=== PATIENT | female | born 1980 | race Caucasian/White ===

== ENCOUNTER 2016-10-23 06:43 | Day surgery (SDC) | payer OTHER ==
[2016-10-22 11:03] VITALS: BMI 22.7
[~2016-10-23] VITALS: Ht 157.5 cm; Wt 60.0 kg
[2016-10-23] VITALS (12 sets, daily range): BP systolic 96–148; BP diastolic 52–80; PULSE 56–87; RESP 15–35; Ht 157.5 cm; Wt 60.0 kg
[2016-10-23] MEDS ORDERED: THROMBIN 5000 UNIT VIAL ONE (08:40)
[2016-10-23] MEDS ORDERED: BUPIVACAINE 0.25% (MPF) 30 ML INJ ONE (08:40)
[2016-10-23] MEDS ORDERED: LIDOCAINE 1% (STERILE-PAK) 30 ML INJ ONE (08:40)
[2016-10-23] MEDS ORDERED: GELATIN SIZE 100 SPONGE ONE (08:40)
[2016-10-23] MEDS ORDERED: POLYMYXIN/BACITRACIN 1L IRRIG ONE (08:40)
[2016-10-23] MEDS ORDERED: HEPARIN 1000 UNITS/ML 10 ML INJ ONE ×2 (08:52→10:06)
[2016-10-23] MEDS ORDERED: MIDAZOLAM 1 MG/ML 2 ML INJ ONE (08:56)
[2016-10-23] MEDS ORDERED: CEFAZOLIN 1 GM INJ ONE (08:56)
[2016-10-23] MEDS ORDERED: PROPOFOL 40 ML ONE (08:56)
[2016-10-23] MEDS ORDERED: FENTAnyl 50 MCG/ML VIAL ONE (08:56)
[2016-10-23] MEDS ORDERED: ROPIVACAINE 0.5 % 30 ML VIAL ONE (08:57)
[2016-10-23] MEDS ORDERED: ASPI81TA3 PO (08:57)
[2016-10-23] MEDS ORDERED: KRIL1CAP19 PO (08:57)
[2016-10-23] MEDS ORDERED: SEVE800T10 PO (08:57)
[2016-10-23 08:58] LABS: ALBUMIN 4.2 g/dl (3.3-4.9)
[2016-10-23] MEDS ORDERED: ONDANSETRON 4 MG INJ IV PRN (09:00)
[2016-10-23] MEDS ORDERED: morphine (1 MG/ML) 10ML SYRINGE IV PRN ×2 (09:00)
[2016-10-23] MEDS ORDERED: DIPHENHYDRAMINE 50 MG INJ IV PRN (09:00)
[2016-10-23] MEDS ORDERED: HYDROmorphONE (0.2 MG/ML) 10ML SYG IV PRN ×2 (09:00)
[2016-10-23] MEDS ORDERED: MEPERIDINE 25 MG INJ IV PRN (09:00)
[2016-10-23 09:01] LABS: ALBUMIN/GLOBULIN RATIO 1.5; POTASSIUM 4.7 mmol/L (3.5-5.1)
[2016-10-23 09:02] LABS: CALCIUM 8.5 mg/dl (8.4-10.2); CREATININE 5.5 mg/dl (0.44-1.00)
[2016-10-23] MEDS ORDERED: PHENYLephrine (100 MCG/ML) 5ML SYG ONE (09:35)
[2016-10-23] MEDS ORDERED: PROPOFOL 20 ML ONE (09:57)
[2016-10-23] MEDS ORDERED: ONDANSETRON 4 MG INJ ONE (10:29)
[2016-10-23] MEDS ORDERED: METOCLOPRAMIDE 10 MG INJ ONE (10:29)
[2016-10-23] MEDS ORDERED: DEXAMETHASONE 4 MG/ML 1 ML INJ ONE (10:30)
--- NOTE | 2016-10-23 15:26 | OPR ---
DATE OF OPERATION: PREOPERATIVE DIAGNOSIS: Renal failure. POSTOPERATIVE DIAGNOSIS: Renal failure. PROCEDURE: Right arm arteriovenous fistula placement, cephalic vein fistula. SURGEON: Garcia Griffin MD ANESTHESIA: Local plus block. CONSENT: Risks, benefits, complications, alternative therapies explained to the patient and the [facility]. Consent obtained. OPERATIVE TECHNIQUE: The patient was placed in supine position, prepped and draped in usual sterile fashion. Lidocaine 1% was used throughout the operation for local anesthesia. Timeout was called, antibiotics were given, and I started. I made a 4-cm incision distal to the right antecubital fossa. Incision was taken down to subcutaneo us tissue, which was then opened using electrocautery. The cephalic vein was identified and dissect ed distally, transected, and irrigated using heparinized saline solution. The brachial artery just below the antecubital fossa was identified. Vesseloops were passed around it. The patient was give n 5000 units of IV heparin. Vascular control was obtained. The cephalic vein was anastomosed in an end-to-side fashion to the brachial artery using 7-0 Prolene continuous suture technique, end-to-si de manner. The wound was irrigated and closed in 2 layers of 3-0 Vicryl suture for the deep and sub cuticular skin closure. Patient tolerated procedure well. Dictated By: GARCIA RODRIGUEZ/YARITZA Conf#: [id number] DID#: [id number]
--- NOTE | 2016-10-24 15:22 | OPR ---
DATE OF OPERATION: 10/23/2016 PREOPERATIVE DIAGNOSIS: End-stage renal disease. POSTOPERATIVE DIAGNOSIS: End-stage renal disease. PROCEDURE: Right arm AV fistula placement. SURGEON: Navneet Griffin MD ANESTHESIA: Local, plus IV sedation. CONSENT: Risks, benefits, complications, alternative therapies were explained to the patient and th e family, and consent obtained. OPERATIVE TECHNIQUE: The patient was placed in the supine position, prepped and draped in the usual sterile fashion. 1% lidocaine was used throughout the operation for local anesthesia. I made a 4-c m incision in the right antecubital fossa in a horizontal fashion. The incision was taken down to t he subcutaneous tissue, which was then opened using electrocautery. The brachial artery and cephali c vein were identified. The cephalic vein was transected distally and anastomosed to the brachial a rtery in end-to-side fashion, 7-0 Prolene continuous suture technique. The wound was irrigated and closed in 2 layers of 4-0 Vicryl suture in running and subcuticular skin closure. The patient had a strong thrill over the newly constructed graft and a palpable radial pulse. No signs of ischemia. Dictated By: NAVNEET RODRIGUEZ/YARITZA Conf#: [id number] DID#: [id number]
== END 2016-10-23 14:30 | disposition home or self-care (01) ==
LOC: SDS 06:43
PROVIDERS: ATTEND Thoracic Surgery (Cardiothoracic Vascular Surgery)
DX: I12.0 Hypertensive chronic kidney disease with stage 5 chronic kidney disease or end stage renal disease (principal); N18.6 End stage renal disease
CPT/HCPCS: 36821; 80053; 84703; J0690; J1644; J2250; J2370; J2795; J3010; Z7512; Z7610; C1725; J1100; J2405; J2765

== ENCOUNTER 2017-03-24 06:50 | Day surgery (SDC) | payer OTHER ==
[~2017-03-24] VITALS: Ht 167.6 cm; Wt 61.4 kg
[~2017-03-24 06:50] MED LIST: ASPI81TA3 PO; KRIL1CAP19 PO; SEVE800T10 PO
[2017-03-24] MEDS ORDERED: CALC667C PO (07:18)
[2017-03-24] MEDS ORDERED: MULTI PO (07:20)
[2017-03-24 07:52] VITALS: BP 131/75; PULSE 68; RESP 16
[2017-03-24 07:55] VITALS: Ht 167.6 cm; Wt 61.4 kg
[2017-03-24 08:10] LABS: BASOPHILS % 0.4 % (0.0-2.0); EOSINOPHILS # 0.1 10^3/ul (0.0-0.5); EOSINOPHILS % 1.7 % (0.0-7.0); HEMATOCRIT 34.9 % (37.0-47.0); HEMOGLOBIN 11.7 g/dl (12.0-16.0); LYMPHOCYTES # 1.3 10^3/ul (0.8-2.9); MEAN CORPUSCULAR HEMOGLOBIN 32.3 pg (29.0-33.0); MEAN CORPUSCULAR HGB CONC 33.5 g/dl (32.0-37.0); MEAN CORPUSCULAR VOLUME 96.4 fl (82.0-101.0); MONOCYTE # 0.4 10^3/ul (0.3-0.9); MONOCYTES % 8.3 % (0.0-11.0); NEUTROPHIL # 2.9 10^3/ul (1.6-7.5); NEUTROPHILS % 62.4 % (39.0-77.0); PLATELET COUNT 127 10^3/UL (140-415); RED BLOOD COUNT 3.62 10^6/ul (4.20-5.40); RED CELL DISTRIBUTION WIDTH 12.3 % (11.5-14.5); WHITE BLOOD COUNT 4.7 10^3/ul (4.8-10.8)
[2017-03-24 08:22] LABS: INR 0.96; PARTIAL THROMBOPLASTIN TIME 26.4 Sec (25.0-35.0); PROTIME 12.8 Sec (12.2-14.2)
[2017-03-24 08:28] LABS: CALCIUM 8.8 mg/dl (8.4-10.2); CREATININE 5.82 mg/dl (0.44-1.00); POTASSIUM 4.4 mmol/L (3.5-5.1)
[2017-03-24 11:15] VITALS: BP 139/73; PULSE 71; RESP 20
--- NOTE | 2017-03-24 14:09 | OPR ---
DATE OF OPERATION: 03/24/2017 SURGEON: Mukund Barrois MD. PREOPERATIVE DIAGNOSIS: End-stage renal disease. POSTOPERATIVE DIAGNOSIS: End-stage renal disease. OPERATION PERFORMED: 1. Bilateral upper extremity venogram. 2. Central venogram. 3. Right upper extremity fistulogram. CONTRAST: As recorded. HEPARIN: None. COMPLICATIONS: None. INDICATIONS: This is a 36-year-old female, who presented with end-stage renal disease, with a previous left upper extremity fistula that had failed. The patient recently underwent a new right upper extremity fistula at seems to have an unusual course on ultrasound findings, therefore, an angiogram was recommended. Further, the patient has had a history of a chest wall catheter for some time and possible central stenosis was of concern. After discussing risks and benefits with the patient's bilateral upper extremity venogram, and fistulogram was recommended. Risks and benefits were discussed with the patient. But not limited to , myocardial infarction, , contrast nephrotoxicity, extravasation, pneumonia. The patient has agreed to proceed. OPERATIVE FINDINGS AT SURGERY: 1. Left forearm cephalic vein. Small cephalic veins patent. 2. Left forearm basilic vein is patent. 3. Left forearm brachial vein is patent. 4. Left cephalic vein is patent in the upper arm. 5. Left upper arm brachial vein is patent. 6. Left upper arm basilic vein not well-visualized, but seems to be patent. 7. The left cephalic arch is patent. 8. Left axillary vein is patent. 9. Left subclavian vein is patent. 10. Left brachiocephalic veins is patent. 11. Left internal jugular vein is not well-visualized. 12. Left brachiocephalic vein is patent the antecubital segment. 13. The cephalic vein is patent to the mid aspect of the upper arm and then it traverses its course towards the medial aspect of the arm which seems to connect to the brachial vein. 14. Right brachial vein in the upper arm is patent. 15. Right axillary vein is patent. 16. Right subclavian vein is patent. 17. Right subclavian vein and internal jugular vein junction with mild stenosis. 18. Right brachial cephalic veins patent. 19. Right superior vena cava is patent, with mild to moderate stenosis in the distal aspect. 20. A reflux imaging was performed of the right antecubital fistula which identify a aneurysmal portion of the cephalic vein which then traverses the course of the blood flow distal into the mid forearm in which it connects to the basal of vein that has matured and is patent. 21. Right forearm basilar vein is patent. 22. Right forearm cephalic vein is not well-visualized. 23. Right forearm brachial vein seems to be small in caliber. OPERATIVE PROCEDURE: Description the patient was brought into the angio suite, placed in supine position. Time-out was performed. The patient identification was correct. Two IV sites that were placed in distal aspect of the arm. Contrast was injected and findings are noted above of the bilateral upper extremity venograms. At this point, we will need to have a better visualization of the fistula. Therefore, a using a micro catheter, Micropuncture kit was used with ultrasound guidance to place a micro catheter in the right upper extremity fistula. At this point, using multi- station evaluation a fistulogram was performed of the right upper extremity. It was identified that the patient has a complex fistula in the proximal aspect of her forearm which suggests that the patient may have had a antecubital vein that had been anastomosed to the brachial artery. There were portions of the fistula that were aneurysmal in the proximal segment. At this point, no further intervention was performed. The micro catheter was removed. Then a #3-0 nylon suture was placed at the puncture site. Patient tolerated procedure well and was taken to the recovery room in fair condition. PLAN: We will discuss the options with the patient, as she would require possible proximal AV fistula revision. Dictated By: Mukund Barrios MD /valeria/lucy /Document#: [id number]
[2017-03-25] MEDS ORDERED: LIDOCAINE 1% (MDV) 20 ML INJ ONE (18:02)
[2017-03-25] MEDS ORDERED: IODIXANOL LOCM 100 ML BTL ONE (18:02)
== END 2017-03-24 12:40 | disposition home or self-care (01) ==
LOC: SDS 06:50
PROVIDERS: ATTEND Student in an Organized Health Care Education/Training Program
DX: I12.0 Hypertensive chronic kidney disease with stage 5 chronic kidney disease or end stage renal disease (principal); N18.6 End stage renal disease
CPT/HCPCS: 36901; 75822; 80048; 85025; 85610; 85730; Z7610; J1644; Q9967

== ENCOUNTER 2017-07-02 11:49 | Inpatient (IN) | payer OTHER ==
[~2017-07-02] VITALS: Ht 167.6 cm; Wt 61.9 kg
[~2017-07-02 11:49] MED LIST changes: +CALC667C PO; -KRIL1CAP19 PO; +MULTI PO; -SEVE800T10 PO
[2017-07-02] MEDS ORDERED: VANCOMYCIN IV PER PHARMACY XX SCH (13:00)
[2017-07-02] MEDS ORDERED: METOCLOPRAMIDE 10 MG INJ IV PRN (13:00)
[2017-07-02] MEDS ORDERED: ONDANSETRON 4 MG INJ IV PRN (13:00)
[2017-07-02] MEDS ORDERED: DOCUSATE SODIUM 100 MG CAP PO PRN (13:00)
[2017-07-02] MEDS ORDERED: MAGNESIUM HYDROXIDE 30ML CUP PO PRN (13:00)
[2017-07-02] MEDS ORDERED: ONDANSETRON 4 MG TAB PO PRN (13:00)
[2017-07-02] MEDS ORDERED: NACL 0.9% 3 ML SYG IV SCH (13:00)
--- NOTE | 2017-07-02 13:34 | HP ---
Date/Time of Note Date/Time of Note DATE: 07/02/17 TIME: 13:27 Assessment/Plan VTE Prophylaxis VTE Prophylaxis Intervention: SCD's Assessment/Plan Assessment/Plan 37 yo F with ESRD on HD here for 2 days of chills and pain at HD line site concerning for HD line infection PLAN blood cultures empiric vanc nephrology consult for HD line management as per vascular surgery cont home meds renal diet HPI/ROS Admit Date/Time Admit Date/Time Jul 02, 2017 at 12:33 Hx of Present Illness CC sent from [facility] for concern for HD line infection HPI 37 yo F with pmhx ESRD on HD prevented to [facility] with c/o 2 days of chills and pain around her HD line. No fevers. No drainage. 10p ROS neg as per HPI Meds reviewed Soc Hx: lives in the community PMHx: ESRD Exam/Review of Systems Exam Exam nad EOMI +ttp around chest HD line, line wrapped no mrg lungs clear abd soft no edema +diffusely scattered maculopapular eruption-->pt states this has been present for 2 years Medications Medications Current Medications Ondansetron HCl (Zofran Tab) 4 mg Q6H PRN PO NAUSEA AND/OR VOMITING; Start 07/02/17 at 13:00 Ondansetron HCl (Zofran Inj) 4 mg Q6H PRN IV NAUSEA AND/OR VOMITING; Start 07/02/17 at 13:00 Metoclopramide HCl (Reglan) 10 mg Q6H PRN IV NAUSEA AND/OR VOMITING; Start 07/02/17 at 13:00; Status UNV Acetaminophen (Tylenol Tab) 650 mg Q6H PRN PO PAIN LEVEL 1-3 OR FEVER; Start 07/02/17 at 13:00 Acetaminophen/ Hydrocodone Bitart ([place] (5/325)) 1 tab Q6H PRN PO MODERATE PAIN LEVEL 4-6; Start 07/02/17 at 13:00 Docusate Sodium (Colace) 100 mg Q12H PRN PO CONSTIPATION; Start 07/02/17 at 13: 00 Magnesium Hydroxide (Milk Of Mag) 30 ml DAILY PRN PO CONSTIPATION; Start at 13:00 Enoxaparin Sodium (Lovenox) 30 mg DAILY SC ; Start 07/03/17 at 09:00; Status UNV Aspirin (Aspirin) 81 mg DAILY PO ; Start 07/03/17 at 09:00 Multivitamins Therapeutic (Theragran) 1 tab DAILY PO ; Start 07/03/17 at 09:00 DIONNE BARRIENTOS MD Jul 02, 2017 13:34
[2017-07-02 13:40] VITALS: Ht 167.6 cm; Wt 61.9 kg
[2017-07-02] MEDS: HYDROCODONE/APAP (5/325) TAB PO PRN ×2 (14:00→20:52)
[2017-07-02 14:41] VITALS: BP 144/71; RESP 20
--- NOTE | 2017-07-02 15:46 | RADRPT ---
PROCEDURE: XR Chest. CLINICAL INDICATION: End-stage renal disease TECHNIQUE: PA and lateral views of the chest were obtained COMPARISON: None FINDINGS: No pleural effusion or pneumothorax. No consolidation. Unremarkable cardiomediastinal silhouette. Right hemodialysis catheter with tip projecting over the mid superior vena cava. No acute osseous abnormality. IMPRESSION: No acute cardiopulmonary disease. RPTAT: QQ Physician Marycruz Date Time Electronically viewed and signed by Marly Macias Physician on 07/02/2017 15:46 /
[2017-07-02] MEDS: VANCOMYCIN 1.25 GM in SOD CHLORIDE 0.9% 250 ML IVPB SCH ×2 (16:00→18:06)
[2017-07-02 17:31] VITALS: BP 134/74; PULSE 77; RESP 16
[2017-07-02] MEDS: CALCIUM ACETATE 667 MG CAP PO SCH (18:10)
[2017-07-02] MEDS ORDERED: DIPHENHYDRAMINE 50 MG INJ IV ONE (20:00)
[2017-07-02 20:14] VITALS: BP 132/75; RESP 18
[2017-07-02] MEDS ORDERED: DAPTOMYCIN 375 MG in SOD CHLORIDE 0.9% 100 ML IVPB SCH (21:00)
[2017-07-03] VITALS (13 sets, daily range): BP systolic 106–157; BP diastolic 58–84; PULSE 67–98; RESP 16–18
--- NOTE | 2017-07-03 01:06 | CONS ---
DATE OF ADMISSION: 07/02/2017 DATE OF CONSULTATION: HISTORY OF PRESENT ILLNESS: Thank you very much for asking me to see this patient in renal consulta tion. Patient very well known to us from outpatient hemodialysis unit. Patient has a Perm-A-Cath i n the right subclavian area. The patient has been on dialysis for the last couple of years. The pa liv had a surgery for her AV access, but it has not been followed up and completed. So far the patient has done reasonably well with her access without any infection, but for the last 48 hours, the patient complaining of localized pain and chills in the catheter site, presumably infe ction. Currently, patient is hospitalized because of the same. 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 Patient generally still makes quite a good amount of urin e and is dialyzed without any ultrafiltration. She does have a history of mild hypertension. Currently, patient review of the chart shows her vital signs are stable. Blood pressure 144/71, pul se 73, respirations 20, afebrile, temperature 97. Her WBC count is normal at 5.8, hemoglobin 10.7, potassium 3.9, calcium 8.7 and phosphorus 4. The patient is dialyzed 3 times a week on Thursday, , Thursday. The patient is very compliant as far as dialysis treatment is concerned. The patien t does have AV fistula created by Dr. Griffin and the patient is to follow up with Dr. Duval for t he same. MEDICATIONS: 1. Patient is still using ibuprofen 600 mg 5 times a week for headaches. 2. Patient was given cefazolin 1 gram on outpatient basis on 07/01/2017 after dialysis. During dialysis, the patient otherwise on: 1. Triferic 20 mg during dialysis. 2. Zemplar 2 mcg. HOME MEDICATIONS: Include: 1. Renagel 3 tablets with each meal. 2. Aspirin 81 mg daily. REVIEW OF SYSTEMS: Patient otherwise overall is feeling good. Weight has been stable. The patient does not have any shortness of breath. No abdominal pain. No problem with urination, no burning, hurting. LABORATORY DATA: Recent laboratory tests were good with potassium at 4.2. Very good clearance on d ialysis. Platelet count of 109,000. WBC 5.0, protein albumin 4.0. PHYSICAL EXAMINATION: VITAL SIGNS: At present, her blood pressure is 144/71, pulse 73, respirations 20 and temperature of 97. NECK: Jugular pressure normal. No significant lymphadenopathy, no thyromegaly. Carotids are palpa ble. CHEST: Expansion equal on both sides. No crepitation or rhonchi. Vesicular breath sounds are well heard. ABDOMEN: ____. No significant organomegaly. Bowel sounds are well heard. EXTREMITIES: Lower extremity examination does not show any edema. IMPRESSION: 1. Infected right Perm-A-Cath. 2. Anemia of chronic kidney disease on Aranesp and iron on outpatient basis. 3. Hyperparathyroidism on Zemplar during dialysis treatments and hyperphosphatemia secondary to hy perparathyroidism and chronic renal failure. The patient is on binders. The patient has been cultured and given vancomycin. The patient has been seen by Dr. Duval and will undergo removal of catheter. The patient will be scheduled for her dialysis treatment Thursday, Thursday, Thursday. Thank you very much, Dr. Buck, for asking me to see this patient in renal consultation. The patien t will be followed closely and further recommendations pending. Sincerely yours, Dictated By: JOEY NIELSEN MD, KG/YARITZA Conf#: [id number] DID#: [id number]
[2017-07-03] MEDS: HYDROCODONE/APAP (5/325) TAB PO PRN ×2 (05:36→15:23)
[2017-07-03] MEDS: CALCIUM ACETATE 667 MG CAP PO SCH ×3 (08:10→18:00)
[2017-07-03] MEDS: MULTIVITAMINS THERAPEUTIC TAB PO SCH (08:10)
[2017-07-03] MEDS: ASPIRIN 81 MG TAB PO SCH (08:10)
[2017-07-03] MEDS: ENOXAPARIN 30 MG/0.3 ML SYG SC SCH (08:15)
--- NOTE | 2017-07-03 11:08 | PN ---
Date/Time of Note Date/Time of Note DATE: 07/03/17 TIME: 11:05 Assessment/Plan VTE Prophylaxis VTE Prophylaxis Intervention: SCD's Lines/Catheters IV Catheter Type (from Nrs): Saline Lock Assessment/Plan Assessment/Plan 1. Infected Right chest permacath 2.ESRD on HD 3. anemia of chronic renal dz 4. secondary hyperparathyroidism 5. hyperphosphatemia Plan: BP stable , K stable today Dr.Sammy diamond has been consulted for Permacath access issues no HD access this point, so HD nurse can not dialyze pt Nephrology Dr.Kamal Ocampo has been following SCD for DVT prophylaxis Subjective 24 Hr Interval Summary Free Text/Dictation pt stable, afebrile, no HD access available yet Exam/Review of Systems Vital Signs Vitals Vital Signs Date Time Temp Pulse Resp B/P Pulse Ox O2 Delivery O2 Flow Rate FiO2 07/03/17 07:56 98.0 71 16 112/58 99 07/02/17 17:31 Room Air Intake and Output 07/02/17 07/02/17 07/03/17 15:00 23:00 07:00 Intake Total 1085 ml 460 ml Output Total 1300 ml 1300 ml Balance -215 ml -840 ml Exam nad EOMI +ttp around chest HD line, line wrapped no mrg lungs clear abd soft no edema +diffusely scattered maculopapular eruption-->pt states this has been present for 2 years Results Result Diagram: 07/03/1726 07/03/17525 Results 24 hrs Laboratory Tests Test 07/02/17 13:49 07/02/17 15:39 07/03/17 05:26 White Blood Count 5.8 # 5.6 Red Blood Count 3.44 L 3.31 L Hemoglobin 10.7 L 10.3 L Hematocrit 33.0 L 31.8 L Mean Corpuscular Volume 95.9 96.1 Mean Corpuscular Hemoglobin 31.1 31.1 Mean Corpuscular Hemoglobin Concent 32.4 32.4 Red Cell Distribution Width 12.4 12.5 Platelet Count 102 L 98 L Mean Platelet Volume 12.7 H 12.8 H Neutrophils % 65.3 62.5 Lymphocytes % 27.6 28.3 Monocytes % 5.2 6.2 Eosinophils % 1.4 2.3 Basophils % 0.3 0.5 Nucleated Red Blood Cells % 0.0 0.0 Neutrophils # 3.8 3.5 Lymphocytes # 1.6 1.6 Monocytes # 0.3 0.4 Eosinophils # 0.1 0.1 Basophils # 0.0 0.0 Nucleated Red Blood Cells # 0.0 0.0 Sodium Level 143 142 Potassium Level 3.9 5.1 Chloride Level 102 106 Carbon Dioxide Level 29 23 Anion Gap 16 18 H Blood Urea Nitrogen 43 H 54 H Creatinine 5.85 H 6.82 H Glucose Level 112 78 Calcium Level 8.7 8.5 Phosphorus Level 4.0 5.5 H Magnesium Level 2.5 2.6 H Prothrombin Time 13.4 Prothrombin Time Ratio 1.0 INR International Normalized Ratio 1.02 Activated Partial Thromboplast Time 26.9 Medications Medications Current Medications Ondansetron HCl (Zofran Tab) 4 mg Q6H PRN PO NAUSEA AND/OR VOMITING; Start 07/02/17 at 13:00 Ondansetron HCl (Zofran Inj) 4 mg Q6H PRN IV NAUSEA AND/OR VOMITING; Start 07/02/17 at 13:00 Metoclopramide HCl (Reglan) 10 mg Q6H PRN IV NAUSEA AND/OR VOMITING; Start 07/02/17 at 13:00 Acetaminophen (Tylenol Tab) 650 mg Q6H PRN PO PAIN LEVEL 1-3 OR FEVER; Start 07/02/17 at 13:00 Acetaminophen/ Hydrocodone Bitart ([place] (5/325)) 1 tab Q6H PRN PO MODERATE PAIN LEVEL 4-6 Last administered on 07/03/17 05:36; Admin Dose 1 TAB; Start at 13:00 Docusate Sodium (Colace) 100 mg Q12H PRN PO CONSTIPATION; Start 07/02/17 at 13: 00 Magnesium Hydroxide (Milk Of Mag) 30 ml DAILY PRN PO CONSTIPATION; Start at 13:00 Enoxaparin Sodium (Lovenox) 30 mg DAILY SC Last administered on 07/03/17 08:15 ; Admin Dose 30 MG; Start 07/03/17 at 09:00 Aspirin (Aspirin) 81 mg DAILY PO Last administered on 07/03/17 08:10; Admin Dose 81 MG; Start 07/03/17 at 09:00 Multivitamins Therapeutic 1 tab 1 tab DAILY PO Last administered on 11/3/17at 08:10; Admin Dose 1 TAB; Start 07/03/17 at 09:00 Daptomycin/Sodium Chloride (Cubicin/NS) 100 ml @ 200 mls/hr Q48H IVPB ; Start 07/04/17 at 21:00 CONSUELO BENSON MD Jul 03, 2017 11:08
--- NOTE | 2017-07-03 14:10 | RADRPT ---
Vent Rate: 73 bpm RR Interval: 0 msec IN Interval: 136 msec QRS Duration: 86 msec QT Interval: 428 msec QTC Interval: 471 msec P-R-T [place]: 58 - 88 - 60 degrees Normal sinus rhythm Normal ECG Electronically Signed By: Reece Small [id number]
--- NOTE | 2017-07-03 14:10 | RADRPT ---
Vent Rate: 73 bpm RR Interval: 0 msec [place] Interval: 136 msec QRS Duration: 86 msec QT Interval: 428 msec QTC Interval: 471 msec P-R-T [place]: 58 - 88 - 60 degrees Normal sinus rhythm Normal ECG Electronically Signed By: Reece Small [id number]
--- NOTE | 2017-07-03 14:10 | RADRPT ---
Vent Rate: 73 bpm RR Interval: 0 msec [place] Interval: 136 msec QRS Duration: 86 msec QT Interval: 428 msec QTC Interval: 471 msec P-R-T [place]: 58 - 88 - 60 degrees Normal sinus rhythm Normal ECG Electronically Signed By: Reece Small [id number]
--- NOTE | 2017-07-03 17:27 | CONS ---
Date/Time of Note Date/Time of Note DATE: 07/03/17 TIME: 17:15 Assessment/Plan Assessment/Plan Chief Complaint/Hosp Course exit site erythema, no drainage. afebrile, blood cs negative, normal wbs count, on daptomycin hemodialysis today. Problems: Consultation Date/Type/Reason Admit Date/Time Jul 02, 2017 at 12:33 Initial Consult Date 07/02/2017 24 HR Interval Summary Free Text/Dictation voices no complaints. catheter site pain improved. chest cleaer abdomen soft, nontender lower extremity no edema Exam/Review of Systems Vital Signs Vitals Vital Signs Date Time Temp Pulse Resp B/P Pulse Ox O2 Delivery O2 Flow Rate FiO2 07/03/17 14:22 98.5 74 16 111/68 99 07/02/17 17:31 Room Air Intake and Output 07/02/17 07/02/17 07/03/17 15:00 23:00 07:00 Intake Total 1085 ml 460 ml Output Total 1300 ml 1300 ml Balance -215 ml -840 ml Results Result Diagram: 07/03/17 0526 07/03/17 0526 Results 24 hrs Laboratory Tests Test 07/03/17 05:26 White Blood Count 5.6 Red Blood Count 3.31 L Hemoglobin 10.3 L Hematocrit 31.8 L Mean Corpuscular Volume 96.1 Mean Corpuscular Hemoglobin 31.1 Mean Corpuscular Hemoglobin Concent 32.4 Red Cell Distribution Width 12.5 Platelet Count 98 L Mean Platelet Volume 12.8 H Neutrophils % 62.5 Lymphocytes % 28.3 Monocytes % 6.2 Eosinophils % 2.3 Basophils % 0.5 Nucleated Red Blood Cells % 0.0 Neutrophils # 3.5 Lymphocytes # 1.6 Monocytes # 0.4 Eosinophils # 0.1 Basophils # 0.0 Nucleated Red Blood Cells # 0.0 Sodium Level 142 Potassium Level 5.1 Chloride Level 106 Carbon Dioxide Level 23 Anion Gap 18 H Blood Urea Nitrogen 54 H Creatinine 6.82 H Glucose Level 78 Calcium Level 8.5 Phosphorus Level 5.5 H Magnesium Level 2.6 H Medications Medications Current Medications Ondansetron HCl (Zofran Tab) 4 mg Q6H PRN PO NAUSEA AND/OR VOMITING; Start 07/02/17 at 13:00 Ondansetron HCl (Zofran Inj) 4 mg Q6H PRN IV NAUSEA AND/OR VOMITING; Start 07/02/17 at 13:00 Metoclopramide HCl (Reglan) 10 mg Q6H PRN IV NAUSEA AND/OR VOMITING; Start 07/02/17 at 13:00 Acetaminophen (Tylenol Tab) 650 mg Q6H PRN PO PAIN LEVEL 1-3 OR FEVER; Start 07/02/17 at 13:00 Acetaminophen/ Hydrocodone Bitart ([place] (5/325)) 1 tab Q6H PRN PO MODERATE PAIN LEVEL 4-6 Last administered on 07/03/17 15:23; Admin Dose 1 TAB; Start at 13:00 Docusate Sodium (Colace) 100 mg Q12H PRN PO CONSTIPATION; Start 07/02/17 at 13: 00 Magnesium Hydroxide (Milk Of Mag) 30 ml DAILY PRN PO CONSTIPATION; Start at 13:00 Enoxaparin Sodium (Lovenox) 30 mg DAILY SC Last administered on 07/03/17 08:15 ; Admin Dose 30 MG; Start 07/03/17 at 09:00 Aspirin (Aspirin) 81 mg DAILY PO Last administered on 07/03/17 08:10; Admin Dose 81 MG; Start 07/03/17 at 09:00 Multivitamins Therapeutic 1 tab 1 tab DAILY PO Last administered on 07/03/17 08:10; Admin Dose 1 TAB; Start 07/03/17 at 09:00 Daptomycin/Sodium Chloride (Cubicin/NS) 100 ml @ 200 mls/hr Q48H IVPB ; Start 07/04/17 at 21:00 JOEY NIELSEN MD Jul 03, 2017 17:25
[2017-07-03] MEDS ORDERED: HEPARIN 1000 UNITS/ML 10 ML INJ CATHETER ONE (17:30)
[2017-07-03] MEDS ORDERED: ALBUMIN HUMAN 25% 100 ML IV ONE (17:30)
[2017-07-03] MEDS ORDERED: DAPTOMYCIN 500 MG in SOD CHLORIDE 0.9% 100 ML IVPB SCH (21:00)
[2017-07-04 02:14] VITALS: BP 102/57; RESP 18
[2017-07-04 07:45] VITALS: BP 125/63; RESP 16
[2017-07-04] MEDS: ASPIRIN 81 MG TAB PO SCH (08:21)
[2017-07-04] MEDS: MULTIVITAMINS THERAPEUTIC TAB PO SCH (08:21)
[2017-07-04] MEDS: CALCIUM ACETATE 667 MG CAP PO SCH ×3 (08:21→17:47)
[2017-07-04] MEDS: ENOXAPARIN 30 MG/0.3 ML SYG SC SCH (08:32)
--- NOTE | 2017-07-04 12:20 | PN ---
Date/Time of Note Date/Time of Note DATE: 07/04/17 TIME: 12:18 Assessment/Plan VTE Prophylaxis VTE Prophylaxis Intervention: SCD's Lines/Catheters IV Catheter Type (from Nrsg): Saline Lock Assessment/Plan Assessment/Plan 1. Infected Right chest permacath 2.ESRD on HD 3. anemia of chronic renal dz 4. secondary hyperparathyroidism 5. hyperphosphatemia Plan: s/p Attempted HD through the current permacath,did not work well but about [address]Sammy diamond has been planning to replace permacath on Thursday Nephrology Dr.Kamal Ocampo has been following -he will decide for next HD SCD for DVT prophylaxis Subjective 24 Hr Interval Summary Free Text/Dictation afebrile, BP stable, afebrile, Exam/Review of Systems Vital Signs Vitals Vital Signs Date Time Temp Pulse Resp B/P Pulse Ox O2 Delivery O2 Flow Rate FiO2 07/04/17 07:45 98.4 70 16 125/63 99 07/03/17 17:25 Room Air Intake and Output 07/03/17 07/03/17 07/04/17 15:00 23:00 07:00 Intake Total 1640 ml Output Total 2050 ml Balance -410 ml Exam EOMI +ttp around chest HD line, line wrapped no mrg lungs clear abd soft no edema +diffusely scattered maculopapular eruption-->pt states this has been present for 2 years Results Result Diagram: 07/03/17 0526 07/03/17525 Results 24 hrs Laboratory Tests Test 07/04/17 05:29 Creatine Kinase 33 Medications Medications Current Medications Ondansetron HCl (Zofran Tab) 4 mg Q6H PRN PO NAUSEA AND/OR VOMITING; Start 07/02/17 at 13:00 Ondansetron HCl (Zofran Inj) 4 mg Q6H PRN IV NAUSEA AND/OR VOMITING; Start 07/02/17 at 13:00 Metoclopramide HCl (Reglan) 10 mg Q6H PRN IV NAUSEA AND/OR VOMITING; Start 07/02/17 at 13:00 Acetaminophen (Tylenol Tab) 650 mg Q6H PRN PO PAIN LEVEL 1-3 OR FEVER; Start 07/02/17 at 13:00 Acetaminophen/ Hydrocodone Bitart ([place] (5/325)) 1 tab Q6H PRN PO MODERATE PAIN LEVEL 4-6 Last administered on 07/03/17 15:23; Admin Dose 1 TAB; Start at 13:00 Docusate Sodium (Colace) 100 mg Q12H PRN PO CONSTIPATION; Start 07/02/17 at 13: 00 Magnesium Hydroxide (Milk Of Mag) 30 ml DAILY PRN PO CONSTIPATION; Start at 13:00 Enoxaparin Sodium (Lovenox) 30 mg DAILY SC Last administered on 07/04/17 08:32 ; Admin Dose 30 MG; Start 07/03/17 at 09:00 Aspirin (Aspirin) 81 mg DAILY PO Last administered on 07/04/17 08:21; Admin Dose 81 MG; Start 07/03/17 at 09:00 Multivitamins Therapeutic 1 tab 1 tab DAILY PO Last administered on 07/04/17 08:21; Admin Dose 1 TAB; Start 07/03/17 at 09:00 Daptomycin/Sodium Chloride (Cubicin/NS) 100 ml @ 200 mls/hr Q48H IVPB ; Start 07/04/17 at 21:00 Epoetin Jai (Epogen (Non Esrd/Non Oncology)) 6,000 units MoWeFr@17 SC ; Start 07/06/17 at 17:00 CONSUELO BENSON MD Jul 04, 2017 12:20
[2017-07-04 17:09] VITALS: BP 123/79; RESP 16
[2017-07-04 20:16] VITALS: BP 140/67; RESP 16
[2017-07-04] MEDS: DAPTOMYCIN 375 MG in SOD CHLORIDE 0.9% 100 ML IVPB SCH (21:39)
--- NOTE | 2017-07-04 22:07 | CONS ---
Date/Time of Note Date/Time of Note DATE: 07/04/17 TIME: 22:05 Consult Date/Type/Reason Admit Date/Time Jul 02, 2017 at 12:33 Initial Consult Date Nephrology Reason for Consultation ESRD Subjective no fevers Objective Vital Signs Date Time Temp Pulse Resp B/P Pulse Ox O2 Delivery O2 Flow Rate FiO2 07/04/17 20:16 98.5 74 16 140/67 100 07/03/17 17:25 Room Air Intake and Output 07/03/17 07/03/17 07/04/17 15:00 23:00 07:00 Intake Total 1640 ml Output Total 2050 ml Balance -410 ml Exam NAD RRR CTA abd soft no edema Results/Medications Result Diagram: 07/03/1752507/03/17525 Results 24 hrs Laboratory Tests Test 07/04/17 05:29 Creatine Kinase 33 Medications Current Medications Ondansetron HCl (Zofran Tab) 4 mg Q6H PRN PO NAUSEA AND/OR VOMITING; Start 07/02/17 at 13:00 Ondansetron HCl (Zofran Inj) 4 mg Q6H PRN IV NAUSEA AND/OR VOMITING; Start 07/02/17 at 13:00 Metoclopramide HCl (Reglan) 10 mg Q6H PRN IV NAUSEA AND/OR VOMITING; Start 07/02/17 at 13:00 Acetaminophen (Tylenol Tab) 650 mg Q6H PRN PO PAIN LEVEL 1-3 OR FEVER; Start 07/02/17 at 13:00 Acetaminophen/ Hydrocodone Bitart ([place] (5/325)) 1 tab Q6H PRN PO MODERATE PAIN LEVEL 4-6 Last administered on 07/03/17 15:23; Admin Dose 1 TAB; Start at 13:00 Docusate Sodium (Colace) 100 mg Q12H PRN PO CONSTIPATION; Start 07/02/17 at 13: 00 Magnesium Hydroxide (Milk Of Mag) 30 ml DAILY PRN PO CONSTIPATION; Start at 13:00 Enoxaparin Sodium (Lovenox) 30 mg DAILY SC Last administered on 07/04/17 08:32 ; Admin Dose 30 MG; Start 07/03/17 at 09:00 Aspirin (Aspirin) 81 mg DAILY PO Last administered on 07/04/17 08:21; Admin Dose 81 MG; Start 07/03/17 at 09:00 Multivitamins Therapeutic 1 tab 1 tab DAILY PO Last administered on 07/04/17 08:21; Admin Dose 1 TAB; Start 07/03/17 at 09:00 Daptomycin/Sodium Chloride (Cubicin/NS) 100 ml @ 200 mls/hr Q48H IVPB Last administered on 07/04/17 21:39; Admin Dose 200 MLS/HR; Start 07/04/17 at 21:00 Epoetin Jai (Epogen (Non Esrd/Non Oncology)) 6,000 units MoWeFr@17 SC ; Start 07/06/17 at 17:00 Assessment/Plan Chief Complaint/Hosp Course 1. ESRD on HD 2. infected tunneled dialysis catheter 3. Anemia of CKD - plan to replace permacath on Thu by vascular - cont abx - next HD on Mon - cont epogen Problems: LORENA WALSH MD Jul 04, 2017 22:07
[2017-07-05] VITALS (11 sets, daily range): BP systolic 106–154; BP diastolic 55–79; PULSE 66–72; RESP 16–20
[2017-07-05] MEDS: ASPIRIN 81 MG TAB PO SCH (08:26)
[2017-07-05] MEDS: MULTIVITAMINS THERAPEUTIC TAB PO SCH (08:26)
[2017-07-05] MEDS: CALCIUM ACETATE 667 MG CAP PO SCH ×3 (08:26→17:16)
[2017-07-05] MEDS: ENOXAPARIN 30 MG/0.3 ML SYG SC SCH (08:28)
--- NOTE | 2017-07-05 14:34 | CONS ---
Date/Time of Note Date/Time of Note DATE: 07/05/17 TIME: 14:32 Consult Date/Type/Reason Admit Date/Time Jul 02, 2017 at 12:33 Initial Consult Date Nephrology Reason for Consultation ESRD Subjective seen during HD today Objective Vital Signs Date Time Temp Pulse Resp B/P Pulse Ox O2 Delivery O2 Flow Rate FiO2 07/05/17 13:35 71 07/05/17 13:35 16 07/05/17 07:41 98.1 111/67 99 07/03/17 17:25 Room Air Intake and Output 07/04/17 07/04/17 07/05/17 15:00 23:00 07:00 Intake Total 940 ml 1190 ml 1270 ml Output Total 1100 ml 1400 ml 1400 ml Balance -160 ml -210 ml -130 ml Exam NAD RRR CTA Abd soft no edema Results/Medications Result Diagram: 07/05/17 0532 07/05/17 0532 Results 24 hrs Laboratory Tests Test 07/05/17 05:32 White Blood Count 5.0 Red Blood Count 3.30 L Hemoglobin 10.5 L Hematocrit 31.4 L Mean Corpuscular Volume 95.2 Mean Corpuscular Hemoglobin 31.8 Mean Corpuscular Hemoglobin Concent 33.4 Red Cell Distribution Width 11.9 Platelet Count 106 L Mean Platelet Volume 13.1 H Neutrophils % 56.6 Lymphocytes % 32.0 Monocytes % 7.8 Eosinophils % 2.8 Basophils % 0.6 Nucleated Red Blood Cells % 0.0 Neutrophils # 2.8 Lymphocytes # 1.6 Monocytes # 0.4 Eosinophils # 0.1 Basophils # 0.0 Nucleated Red Blood Cells # 0.0 Sodium Level 140 Potassium Level 5.7 H Chloride Level 106 Carbon Dioxide Level 22 Anion Gap 18 H Blood Urea Nitrogen 56 H Creatinine 7.14 H Glucose Level 83 Calcium Level 8.9 Phosphorus Level 5.6 H Magnesium Level 2.4 Medications Current Medications Ondansetron HCl (Zofran Tab) 4 mg Q6H PRN PO NAUSEA AND/OR VOMITING; Start 07/02/17 at 13:00 Ondansetron HCl (Zofran Inj) 4 mg Q6H PRN IV NAUSEA AND/OR VOMITING; Start 07/02/17 at 13:00 Metoclopramide HCl (Reglan) 10 mg Q6H PRN IV NAUSEA AND/OR VOMITING; Start 07/02/17 at 13:00 Acetaminophen (Tylenol Tab) 650 mg Q6H PRN PO PAIN LEVEL 1-3 OR FEVER; Start 07/02/17 at 13:00 Acetaminophen/ Hydrocodone Bitart ([place] (5/325)) 1 tab Q6H PRN PO MODERATE PAIN LEVEL 4-6 Last administered on 07/03/17 15:23; Admin Dose 1 TAB; Start at 13:00 Docusate Sodium (Colace) 100 mg Q12H PRN PO CONSTIPATION; Start 07/02/17 at 13: 00 Magnesium Hydroxide (Milk Of Mag) 30 ml DAILY PRN PO CONSTIPATION; Start at 13:00 Enoxaparin Sodium (Lovenox) 30 mg DAILY SC Last administered on 07/05/17 08:28 ; Admin Dose 30 MG; Start 07/03/17 at 09:00 Aspirin (Aspirin) 81 mg DAILY PO Last administered on 07/05/17 08:26; Admin Dose 81 MG; Start 07/03/17 at 09:00 Multivitamins Therapeutic 1 tab 1 tab DAILY PO Last administered on 07/05/17 08:26; Admin Dose 1 TAB; Start 07/03/17 at 09:00 Daptomycin/Sodium Chloride (Cubicin/NS) 100 ml @ 200 mls/hr Q48H IVPB Last administered on 07/04/17 21:39; Admin Dose 200 MLS/HR; Start 07/04/17 at 21:00 Epoetin Jai (Epogen (Non Esrd/Non Oncology)) 6,000 units MoWeFr@17 SC ; Start 07/06/17 at 17:00 Assessment/Plan Chief Complaint/Hosp Course 1. ESRD on HD MWF 2. infected tunneled dialysis catheter 3. Anemia of CKD - plan to replace permacath on Mon by vascular - cont abx - HD done today for hyperkalemia - then resume HD MWF - cont epogen Problems: LORENA WALSH MD Jul 05, 2017 14:34
--- NOTE | 2017-07-05 17:23 | PN ---
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 Unfortunately, her cephalic vein in the mid upper arm is short and travels to the brachial vein. This was discussed with the patient as an outpatient and the plan was to revise this fistula in order to salvage this aspect of the vein in order to give her longevity for her right upper extremity for fistula access. -Possible right chest wall catheter infection: The patient has had a history of chills with possible line sepsis. At the moment, the patient does not have any erythema or purulence around the catheter site; however, she does have some discomfort upon palpation of the catheter on the anterior upper chest wall. We will plan to exchange the catheter for the patient in the coming day or so. -Will need to keep the patient on IV antibiotics. -Will await the blood cultures and evaluation. -Discussed vascular optimization (BP meds, diet, nutrition, exercise). -Discussed the findings, plan and management with the patient. She understands with a certified assembler garment form. -Thank you for allowing us to partake in the care of your patient. Please call with any questions. Problems: Subjective 24 Hr Interval Summary no new vascular events overnight Exam/Review of Systems Vital Signs Vitals Vital Signs Date Time Temp Pulse Resp B/P Pulse Ox O2 Delivery O2 Flow Rate FiO2 07/05/17 16:11 98.1 80 18 154/73 100 07/03/17 17:25 Room Air Intake and Output 07/04/17 07/04/17 07/05/17 15:00 23:00 07:00 Intake Total 940 ml 1190 ml 1270 ml Output Total 1100 ml 1400 ml 1400 ml Balance -160 ml -210 ml -130 ml Exam Free Text/Dictation GENERAL: Alert and oriented x3. PULMONARY: Clear to auscultation bilaterally. catheter intact with some tenderness at the puncture site CARDIOVASCULAR: S1, S2 present. No murmurs. ABDOMEN: Soft, nontender, nondistended. Bowel sounds positive. EXTREMITIES: Lower extremities: Palpable femoral pulse, palpable pedal pulse. Motor and sensory intact. Capillary refill 2 to 3 seconds. Right upper extremity: Palpable brachial pulse. Motor and sensory intact. Capillary refill 2 to 3 seconds. Fistula with aneurysmal changes with bruit and thrill present Results Result Diagram: 07/05/17 0532 07/05/17 0532 VALENTE VILLALBA MD Jul 05, 2017 17:23
--- NOTE | 2017-07-05 21:10 | PN ---
Date/Time of Note Date/Time of Note DATE: 07/05/17 TIME: 21:09 Assessment/Plan VTE Prophylaxis VTE Prophylaxis Intervention: SCD's Lines/Catheters IV Catheter Type (from Nrsg): Central Line Central line still needed: Yes (HD access ) Assessment/Plan Assessment/Plan 1. Infected Right chest permacath 2.ESRD on HD 3. anemia of chronic renal dz 4. secondary hyperparathyroidism 5. hyperphosphatemia Plan: s/p Attempted HD through the current permacath,did not work well but about [address]Sammy diamond has been planning to replace permacath on Thursday Nephrology Dr.Kamal Ocampo has been following -he will decide for next HD SCD for DVT prophylaxis Subjective 24 Hr Interval Summary Free Text/Dictation no acute events overnight, Bp stable Exam/Review of Systems Vital Signs Vitals Vital Signs Date Time Temp Pulse Resp B/P Pulse Ox O2 Delivery O2 Flow Rate FiO2 07/05/17 19:43 98.7 74 20 144/79 98 07/03/17 17:25 Room Air Intake and Output 07/04/17 07/04/17 07/05/17 15:00 23:00 07:00 Intake Total 940 ml 1190 ml 1270 ml Output Total 1100 ml 1400 ml 1400 ml Balance -160 ml -210 ml -130 ml Exam EOMI +ttp around chest HD line, line wrapped no mrg lungs clear abd soft no edema +diffusely scattered maculopapular eruption-->pt states this has been present for 2 years Results Result Diagram: 07/05/17 0532 07/05/17 0532 Results 24 hrs Laboratory Tests Test 07/05/17 05:32 White Blood Count 5.0 Red Blood Count 3.30 L Hemoglobin 10.5 L Hematocrit 31.4 L Mean Corpuscular Volume 95.2 Mean Corpuscular Hemoglobin 31.8 Mean Corpuscular Hemoglobin Concent 33.4 Red Cell Distribution Width 11.9 Platelet Count 106 L Mean Platelet Volume 13.1 H Neutrophils % 56.6 Lymphocytes % 32.0 Monocytes % 7.8 Eosinophils % 2.8 Basophils % 0.6 Nucleated Red Blood Cells % 0.0 Neutrophils # 2.8 Lymphocytes # 1.6 Monocytes # 0.4 Eosinophils # 0.1 Basophils # 0.0 Nucleated Red Blood Cells # 0.0 Sodium Level 140 Potassium Level 5.7 H Chloride Level 106 Carbon Dioxide Level 22 Anion Gap 18 H Blood Urea Nitrogen 56 H Creatinine 7.14 H Glucose Level 83 Calcium Level 8.9 Phosphorus Level 5.6 H Magnesium Level 2.4 Medications Medications Current Medications Ondansetron HCl (Zofran Tab) 4 mg Q6H PRN PO NAUSEA AND/OR VOMITING; Start 07/02/17 at 13:00 Ondansetron HCl (Zofran Inj) 4 mg Q6H PRN IV NAUSEA AND/OR VOMITING; Start 07/02/17 at 13:00 Metoclopramide HCl (Reglan) 10 mg Q6H PRN IV NAUSEA AND/OR VOMITING; Start 07/02/17 at 13:00 Acetaminophen (Tylenol Tab) 650 mg Q6H PRN PO PAIN LEVEL 1-3 OR FEVER; Start 07/02/17 at 13:00 Acetaminophen/ Hydrocodone Bitart ([place] (5/325)) 1 tab Q6H PRN PO MODERATE PAIN LEVEL 4-6 Last administered on 07/03/17 15:23; Admin Dose 1 TAB; Start at 13:00 Docusate Sodium (Colace) 100 mg Q12H PRN PO CONSTIPATION; Start 07/02/17 at 13: 00 Magnesium Hydroxide (Milk Of Mag) 30 ml DAILY PRN PO CONSTIPATION; Start at 13:00 Enoxaparin Sodium (Lovenox) 30 mg DAILY SC Last administered on 07/05/17 08:28 ; Admin Dose 30 MG; Start 07/03/17 at 09:00 Aspirin (Aspirin) 81 mg DAILY PO Last administered on 07/05/17 08:26; Admin Dose 81 MG; Start 07/03/17 at 09:00 Multivitamins Therapeutic 1 tab 1 tab DAILY PO Last administered on 07/05/17 08:26; Admin Dose 1 TAB; Start 07/03/17 at 09:00 Daptomycin/Sodium Chloride (Cubicin/NS) 100 ml @ 200 mls/hr Q48H IVPB Last administered on 07/04/17 21:39; Admin Dose 200 MLS/HR; Start 07/04/17 at 21:00 Epoetin Jai (Epogen (Non Esrd/Non Oncology)) 6,000 units MoWeFr@17 SC ; Start 07/06/17 at 17:00 CONSUELO BENSON MD Jul 05, 2017 21:10
[2017-07-06] VITALS (15 sets, daily range): BP systolic 97–144; BP diastolic 52–79; PULSE 65–77; RESP 14–20
--- NOTE | 2017-07-06 08:09 | HPN ---
Date/Time of Note Date/Time of Note DATE: 07/06/17 TIME: 08:08 Interval H&P Admission Note Pt. seen H&P reviewed: No system changes VALENTE VILLALBA MD Jul 06, 2017 08:09
[2017-07-06] MEDS: CALCIUM ACETATE 667 MG CAP PO SCH ×3 (08:15→18:00)
[2017-07-06] MEDS ORDERED: HEPARIN 1000 UNITS/NS (A-LINE) 1,000 ML ONE (08:25)
[2017-07-06] MEDS ORDERED: LIDOCAINE 1% (MDV) 20 ML INJ ONE (08:25)
[2017-07-06] MEDS ORDERED: FENTAnyl 50 MCG/ML VIAL ONE (08:44)
[2017-07-06] MEDS ORDERED: MIDAZOLAM 1 MG/ML 2 ML INJ ONE (08:44)
--- NOTE | 2017-07-06 09:17 | PN ---
Date/Time of Note Date/Time of Note DATE: 07/06/17 TIME: 09:17 Assessment/Plan VTE Prophylaxis VTE Prophylaxis Intervention: ambulation, SCD's Lines/Catheters IV C[facility]ter [facility]from [facility] Central Line Central line still needed: Yes Assessment/Plan Chief Complaint/Hosp Course 37 year old female with ESRD on dialysis, sent from [facility] for concern for HD line infection 1. Infected Right chest permacath -Status post exchange of catheter on 07/06/2017. -Continue antibiotics. Follow-up final cultures. 2.ESRD on HD -Hemodialysis per nephrology recommendations. Currently, using right AV fistula which is now maturing. 3. Anemia of chronic kidney disease. -H&H stable. 4. Mineral bone disorders. -Continue phosphate binders. Plan: Discharge planning once cleared from nephrology standpoint. Patient was seen in collaboration with . Problems: Subjective 24 Hr Interval Summary Free Text/Dictation Patient status post from exchange right IJ hemodialysis catheter. Currently she is getting dialysis through the maturing right arm fistula. Exam/Review of Systems Vital Signs Vitals Vital Signs Date Time Temp Pulse Resp B/P Pulse Ox O2 Delivery O2 Flow Rate FiO2 07/06/17 07:27 97.9 72 20 144/70 99 07/03/17 17:25 Room Air Intake and Output 07/05/17 07/05/17 07/06/17 15:00 23:00 07:00 Intake Total 500 ml 1660 ml 120 ml Output Total 1000 ml 800 ml Balance -500 ml 860 ml 120 ml Exam General: Well developed,adequately built, not in any acute distress . HEENT: Normocephalic, Atraumatic, No laceration or hematoma; Eyes: PEERL, Conjunctiva clear, Anicteric sclera Neck: Supple without any lymphadenopathy, nontender, no JVD, no carotid bruits, trachea midline, no thyromegaly Cardiac: S1, S2 auscultated, regular rhythm and rate, no mumurs or gallop Pulmonary: Normal respiratory effort. Chest clear to auscultation bilaterally, no adventitious breath sounds GI: Abdomen normal to inspection. Soft, non tender, non- distended, no masses, no rebound tenderness or guarding. Bowel sounds active on all four quadrants Genitourinary: Deferred Extremities: No cyanosis, clubbing, or edema. Pulses [2+] bilaterally. Full ROM on all four extremities. No focal weakness appreciated. Neurologic: Alert to person, place, time, and situation. Affect appropriate, intact sensation. Skin: Clean,dry, and intact. No ecchymosis, no rashes, or lesions Access: Right chest hemodialysis catheter. Right AV fistula maturing. Results Result Diagram: 07/06/17 0458 07/06/17 0458 Results 24 hrs Laboratory Tests Test 07/06/17 04:58 White Blood Count 5.3 Red Blood Count 3.32 L Hemoglobin 10.5 L Hematocrit 31.3 L Mean Corpuscular Volume 94.3 Mean Corpuscular Hemoglobin 31.6 Mean Corpuscular Hemoglobin Concent 33.5 Red Cell Distribution Width 12.0 Platelet Count 96 L Mean Platelet Volume 13.2 H Neutrophils % 57.4 Lymphocytes % 33.0 Monocytes % 6.4 Eosinophils % 2.4 Basophils % 0.6 Nucleated Red Blood Cells % 0.0 Neutrophils # 3.1 Lymphocytes # 1.8 Monocytes # 0.3 Eosinophils # 0.1 Basophils # 0.0 Nucleated Red Blood Cells # 0.0 Prothrombin Time 14.7 H Prothrombin Time Ratio 1.1 INR International Normalized Ratio 1.15 Activated Partial Thromboplast Time 25.5 Sodium Level 141 Potassium Level 4.4 Chloride Level 105 Carbon Dioxide Level 25 Anion Gap 15 Blood Urea Nitrogen 43 #H Creatinine 5.93 H Glucose Level 86 Calcium Level 8.6 Total Bilirubin 0.2 Direct Bilirubin 0.00 Indirect Bilirubin 0.2 Aspartate Amino Transf (AST/SGOT) 18 Alanine Aminotransferase (ALT/SGPT) 16 Alkaline Phosphatase 55 Total Protein 6.9 Albumin 3.9 Globulin 3.00 Albumin/Globulin Ratio 1.30 Medications Medications Current Medications Ondansetron HCl (Zofran Tab) 4 mg Q6H PRN PO NAUSEA AND/OR VOMITING; Start 07/02/17 at 13:00 Ondansetron HCl (Zofran Inj) 4 mg Q6H PRN IV NAUSEA AND/OR VOMITING; Start 07/02/17 at 13:00 Metoclopramide HCl (Reglan) 10 mg Q6H PRN IV NAUSEA AND/OR VOMITING; Start 07/02/17 at 13:00 Acetaminophen (Tylenol Tab) 650 mg Q6H PRN PO PAIN LEVEL 1-3 OR FEVER; Start 07/02/17 at 13:00 Acetaminophen/ Hydrocodone Bitart ([place] (5/325)) 1 tab Q6H PRN PO MODERATE PAIN LEVEL 4-6 Last administered on 07/03/17 15:23; Admin Dose 1 TAB; Start at 13:00 Docusate Sodium (Colace) 100 mg Q12H PRN PO CONSTIPATION; Start 07/02/17 at 13: 00 Magnesium Hydroxide (Milk Of Mag) 30 ml DAILY PRN PO CONSTIPATION; Start at 13:00 Enoxaparin Sodium (Lovenox) 30 mg DAILY SC Last administered on 07/05/17 08:28 ; Admin Dose 30 MG; Start 07/03/17 at 09:00 Aspirin (Aspirin) 81 mg DAILY PO Last administered on 07/05/17 08:26; Admin Dose 81 MG; Start 07/03/17 at 09:00 Multivitamins Therapeutic 1 tab 1 tab DAILY PO Last administered on 07/05/17 08:26; Admin Dose 1 TAB; Start 07/03/17 at 09:00 Daptomycin/Sodium Chloride (Cubicin/NS) 100 ml @ 200 mls/hr Q48H IVPB Last administered on 07/04/17 21:39; Admin Dose 200 MLS/HR; Start 07/04/17 at 21:00 Epoetin Jai (Epogen (Non Esrd/Non Oncology)) 6,000 units MoWeFr@17 SC ; Start 07/06/17 at 17:00 KHANH WHEELER NP Jul 06, 2017 09:17
--- NOTE | 2017-07-06 09:18 | OPR ---
Date/Time of Note Date/Time of Note DATE: 07/06/17 TIME: 09:11 Operative Report Procedure Date: Jul 06, 2017 Preoperative Diagnosis ESRD, Postoperative Diagnosis SAME Surgeon see signature line Drapery Operator NONE Anesthesia Type: moderate sedation Estimated Blood Loss: minimal Transfusion none Specimen CATHETER TIP Grafts/Implants none Complications none Pt Condition Post Procedure: stable Disposition: other (FLOOR) Procedure Description DATE OF OPERATION: 07/06/2017 SURGEON: Mukund Villalba MD. PREOPERATIVE DIAGNOSIS: End-stage renal disease POSTOPERATIVE DIAGNOSIS:Same ANESTHESIA: Local with Sedation BLOOD LOSS: minimal COMPLICATIONS: None. HEPARIN: None CONTRAST: None ACCESS: Right IJ vein CLOSURE: Manual compression & 3-0 Nylon suture INDICATIONS: This is a 37 year-old female with renal failure and some chest wall discomfort over the catheter insertion site. Currently no pus or erythema identified in the area however will plan to exchange the catheter and send the tip for culture. Patient and family have been informed of the alternatives, risks, and benefits. Risks including but not limited to bleeding, thrombosis, embolization, myocardial infarction, , device malfunction, infection, pneumothorax, and nephrotoxicity and patient has agreed to proceed. This is the first in this clinical setting PROCEDURE: 1. Exchange of right internal jugular vein hemodialysis catheter 2. Central Venogram DESCRIPTION: The patient was placed supine on angio bed. The bed was placed in Trendelenburg position and bilateral neck and chest were prepped and draped with sterile technique. A time-out was completed verifying correct patient, procedure, site, positioning, and catheter prior to beginning this procedure. The dialysis catheter was flushed with heparin to ensure function of each port. The skin and subcutaneous tissue were anesthetized with 1% lidocaine. Landmarks were identified. The infraclavicular chest wall catheter was used to gain access of the central vein and glide wire placement under fluoroscopy in the IVC under fluoroscopy. The permanent catheter was exchanged over the wire and placed in the distal SVC. The previous catheter tip was sent for culture. A spot fluoro was performed and catheter position was satisfactory. Each port was aspirated to ensure adequate blood flow and then flushed with heparinized saline. A central venogram was performed for evaluation of a central stenosis and non was identified. Each port heparin solution was placed. At this point using the Catheter was secured using 3-0 nylon suture and a sterile dressings applied. The patient tolerated the procedure well and taken to the postanesthesia unit in [facility] condition. MUKUND VILLALBA MD Jul 06, 2017 09:18
[2017-07-06] MEDS: MULTIVITAMINS THERAPEUTIC TAB PO SCH (10:15)
[2017-07-06] MEDS: ASPIRIN 81 MG TAB PO SCH (10:16)
[2017-07-06] MEDS: ENOXAPARIN 30 MG/0.3 ML SYG SC SCH (10:24)
[2017-07-06] MEDS: EPOETIN 3000 UNITS/ML (NON ESRD/NON ONCOLOGY) SC SCH (17:00)
[2017-07-06] MEDS: DAPTOMYCIN 375 MG in SOD CHLORIDE 0.9% 100 ML IVPB SCH ×2 (21:00→21:10)
[2017-07-06] MEDS ORDERED: DAPTOMYCIN 375 MG in SOD CHLORIDE 0.9% 100 ML IVPB SCH (21:00)
[2017-07-07 02:00] VITALS: BP 104/56; RESP 20
[2017-07-07 07:37] VITALS: BP 119/60; RESP 20
[2017-07-07] MEDS: ASPIRIN 81 MG TAB PO SCH (08:53)
[2017-07-07] MEDS: CALCIUM ACETATE 667 MG CAP PO SCH ×3 (08:54→18:56)
[2017-07-07] MEDS: MULTIVITAMINS THERAPEUTIC TAB PO SCH (08:54)
[2017-07-07] MEDS: ACETAMINOPHEN 325 MG TAB PO PRN (09:00)
--- NOTE | 2017-07-07 09:50 | PDOCDIS ---
Discharge Instructions CONDITION Patient Condition: Stable HOME CARE INSTRUCTIONS: Special Diet: Renal diet FOLLOW UP/APPOINTMENTS Follow-up Plan 1.Follow up with primary care physician in 1 week If you don't have one please let someone know, we can give you resources that may help you pick one. You may also call your insurance company to assign one to you. Review your medication list with your nurse before leaving and if you need new prescriptions please let your nurse know. I may have made changes to your home medications or given you new prescriptions, please let your primary doctor know as well. Stay compliant with your medications and report any side effects to your PCP or pharmacist. Return to the ER if you have any concerns and cannot reach your doctors or call your insurance company, they usually have a nurse that can help you. 2. Call 911 or go to the nearest emergency room if experiencing loss of consciousness, dizziness, chest pain, shortness of breath, vomiting/abdominal pain, speech difficulties, motor weakness or any unusual symptoms. 3.Follow-up with outpatient hemodialysis clinic and casing tier [facility] [phone] KHANH WHEELER NP Jul 07, 2017 09:50
--- NOTE | 2017-07-07 09:50 | PDOCDIS ---
Discharge Instructions CONDITION Patient Condition: Stable HOME CARE INSTRUCTIONS: Special Diet: Renal diet FOLLOW UP/APPOINTMENTS Follow-up Plan 1.Follow up with primary care physician in 1 week If you don't have one please let someone know, we can give you resources that may help you pick one. You may also call your insurance company to assign one to you. Review your medication list with your nurse before leaving and if you need new prescriptions please let your nurse know. I may have made changes to your home medications or given you new prescriptions, please let your primary doctor know as well. Stay compliant with your medications and report any side effects to your PCP or pharmacist. Return to the ER if you have any concerns and cannot reach your doctors or call your insurance company, they usually have a nurse that can help you. 2. Call 911 or go to the nearest emergency room if experiencing loss of consciousness, dizziness, chest pain, shortness of breath, vomiting/abdominal pain, speech difficulties, motor weakness or any unusual symptoms. 3.Follow-up with outpatient hemodialysis clinic and wool fleece grader [facility] center[facility] [phone] KHANH WHEELER NP Jul 07, 2017 09:50
--- NOTE | 2017-07-07 09:50 | PDOCDIS ---
Discharge Instructions CONDITION Patient Condition: Stable HOME CARE INSTRUCTIONS: Special Diet: Renal diet FOLLOW UP/APPOINTMENTS Follow-up Plan 1.Follow up with primary care physician in 1 week If you don't have one please let someone know, we can give you resources that may help you pick one. You may also call your insurance company to assign one to you. Review your medication list with your nurse before leaving and if you need new prescriptions please let your nurse know. I may have made changes to your home medications or given you new prescriptions, please let your primary doctor know as well. Stay compliant with your medications and report any side effects to your PCP or pharmacist. Return to the ER if you have any concerns and cannot reach your doctors or call your insurance company, they usually have a nurse that can help you. 2. Call 911 or go to the nearest emergency room if experiencing loss of consciousness, dizziness, chest pain, shortness of breath, vomiting/abdominal pain, speech difficulties, motor weakness or any unusual symptoms. 3.Follow-up with outpatient hemodialysis clinic and escalator mechanic [facility] [phone] KHANH WHEELER NP Jul 07, 2017 09:50
--- NOTE | 2017-07-07 11:58 | PN ---
Date/Time of Note Date/Time of Note DATE: 07/07/17 TIME: 11:56 Assessment/Plan VTE Prophylaxis VTE Prophylaxis Intervention: heparin Lines/Catheters [facility] HD cath Assessment/Plan Chief Complaint/Hosp Course 37 year old female with ESRD on dialysis, sent from [facility] for concern for HD line infection 1. Infected Right chest permacath -Status post exchange of catheter on 07/06/2017. -Continue antibiotics. Cultures negative. 2.ESRD on HD -Hemodialysis per nephrology recommendations. Currently, using right AV fistula which is now maturing. 3. Anemia of chronic kidney disease. -H&H stable. 4. Mineral bone disorders. -Continue phosphate binders. Plan: Patient with 2 sets of negative blood cultures. She is currently receiving IV daptomycin. We are going to request ID consult for consultation on antibiotic upon discharge. Patient was seen in collaboration with . Problems: Subjective 24 Hr Interval Summary Free Text/Dictation Patient doing well. She had hemodialysis through right AV fistula yesterday. Exam/Review of Systems Vital Signs Vitals Vital Signs Date Time Temp Pulse Resp B/P Pulse Ox O2 Delivery O2 Flow Rate FiO2 07/07/17 07:37 98.1 74 20 119/60 98 07/06/17 09:46 Room Air Intake and Output 07/06/17 07/06/17 07/07/17 15:00 23:00 07:00 Intake Total 500 ml 240 ml Output Total 1800 ml Balance -1300 ml 240 ml Exam General: Well developed,adequately built, not in any acute distress . HEENT: Normocephalic, Atraumatic, No laceration or hematoma; Eyes: PEERL, Conjunctiva clear, Anicteric sclera Neck: Supple without any lymphadenopathy, nontender, no JVD, no carotid bruits, trachea midline, no thyromegaly Cardiac: S1, S2 auscultated, regular rhythm and rate, no mumurs or gallop Pulmonary: Normal respiratory effort. Chest clear to auscultation bilaterally, no adventitious breath sounds GI: Abdomen normal to inspection. Soft, non tender, non- distended, no masses, no rebound tenderness or guarding. Bowel sounds active on all four quadrants Genitourinary: Deferred Extremities: No cyanosis, clubbing, or edema. Pulses [2+] bilaterally. Full ROM on all four extremities. No focal weakness appreciated. Neurologic: Alert to person, place, time, and situation. Affect appropriate, intact sensation. Skin: With chronic scattered maculopapular rashes. Access: Right chest hemodialysis catheter. Right AV fistula maturing. Results Result Diagram: 07/07/17 0503 07/07/17 0503 Results 24 hrs Laboratory Tests Test 07/07/17 05:03 White Blood Count 5.8 Red Blood Count 3.48 L Hemoglobin 10.8 L Hematocrit 32.5 L Mean Corpuscular Volume 93.4 Mean Corpuscular Hemoglobin 31.0 Mean Corpuscular Hemoglobin Concent 33.2 Red Cell Distribution Width 12.3 Platelet Count 98 L Mean Platelet Volume 13.5 H Neutrophils % 62.0 Lymphocytes % 26.9 Monocytes % 8.1 Eosinophils % 2.1 Basophils % 0.7 Nucleated Red Blood Cells % 0.0 Neutrophils # 3.6 Lymphocytes # 1.6 Monocytes # 0.5 Eosinophils # 0.1 Basophils # 0.0 Nucleated Red Blood Cells # 0.0 Sodium Level 141 Potassium Level 4.4 Chloride Level 102 Carbon Dioxide Level 27 Anion Gap 16 Blood Urea Nitrogen 39 H Creatinine 5.59 H Glucose Level 86 Calcium Level 9.0 Medications Medications Current Medications Ondansetron HCl (Zofran Tab) 4 mg Q6H PRN PO NAUSEA AND/OR VOMITING; Start 07/02/17 at 13:00 Ondansetron HCl (Zofran Inj) 4 mg Q6H PRN IV NAUSEA AND/OR VOMITING; Start 07/02/17 at 13:00 Metoclopramide HCl (Reglan) 10 mg Q6H PRN IV NAUSEA AND/OR VOMITING; Start 07/02/17 at 13:00 Acetaminophen (Tylenol Tab) 650 mg Q6H PRN PO PAIN LEVEL 1-3 OR FEVER Last administered on 07/07/17 09:00; Admin Dose 650 MG; Start 07/02/17 at 13:00 Acetaminophen/ Hydrocodone Bitart (Hettick (5/325)) 1 tab Q6H PRN PO MODERATE PAIN LEVEL 4-6 Last administered on 07/03/17 15:23; Admin Dose 1 TAB; Start at 13:00 Docusate Sodium (Colace) 100 mg Q12H PRN PO CONSTIPATION; Start 07/02/17 at 13: 00 Magnesium Hydroxide (Milk Of Mag) 30 ml DAILY PRN PO CONSTIPATION; Start at 13:00 Aspirin (Aspirin) 81 mg DAILY PO Last administered on 07/07/17 08:53; Admin Dose 81 MG; Start 07/03/17 at 09:00 Multivitamins Therapeutic 1 tab 1 tab DAILY PO Last administered on 07/07/17 08:54; Admin Dose 1 TAB; Start 07/03/17 at 09:00 Daptomycin/Sodium Chloride (Cubicin/NS) 100 ml @ 200 mls/hr Q48H IVPB Last administered on 07/06/17 21:10; Admin Dose 200 MLS/HR; Start 07/04/17 at 21:00 Epoetin Jai (Epogen (Non Esrd/Non Oncology)) 6,000 units MoWeFr@17 SC ; Start 07/06/17 at 17:00 KHANH WHEELER NP Jul 07, 2017 11:58
--- NOTE | 2017-07-07 13:23 | DS ---
Date/Time of Note Date/Time of Note DATE: 07/07/17 TIME: 13:21 Discharge Summary Admission/Discharge Info Admit Date/Time Jul 02, 2017 at 12:33 Discharge Date/Time Discharge Diagnosis 1. Suspect infected Right chest permacath. Status post exchange of catheter on 07/06/2017. 2. ESRD on HD . Maturing right AV fistula. 3. Anemia of chronic kidney disease. 4. Mineral bone disorders. Patient Condition: Stable Consults , vascular , nephrology Dr. Jaramillo, ID Procedures : Exchange of right internal jugular vein hemodialysis catheter with central venogram Hospital Course This is a 37-year-old female with a past medical history of end-stage renal disease who is also on dialysis, right chest wall catheter and right upper extremity fistula which is maturing, who presented to [facility] with chills and pain on right chest wall catheter insertion site. She was then asked to go to the emergency room for suspicion of catheter infection. Patient did not have any other constitutional symptoms. Patient did not have any leukocytosis or fever. Patient was evaluated by nephrology for hemodialysis. Cultures were drawn. She was continued on empiric daptomycin for possible central line infection. On 07/06/2017, patient had exchange of right internal jugular vein hemodialysis catheter with central venogram. Patient tolerated procedure well. Patient also had successful dialysis through right AV fistula which was maturing. There was no further fever or leukocytosis. Blood cultures 2 sets remained negative. At this time, there is no further inpatient workup indicated. Patient is medically stable for discharge with outpatient nephrology follow-up. Patient was also evaluated by ID. Per discussion between nephrology and ID, best recommendation was to discharge patient on 2weeks of Zyvox 600mg BID with plan for removal of newly inserted right chest permacath as AV fistula seems matured and is being used. Disposition: Patient will be discharged home with outpatient nephrology follow- up. Patient verbalized discharge instructions. Approximately 60 minutes was spent in coordinating the discharge on this patient. Patient was seen in collaboration with . Home Meds Active Scripts Linezolid* (Zyvox*) 600 Mg Tablet, 600 MG PO BID for 14 Days, #28 TAB Prov:KHANH WHEELER V. [employer]LECTRONIC [employer]STRUMENT TRADES WORKER 07/08/17 Reported Medications Multivitamins* (Theragran*) 1 Tab Tab, 1 TAB PO DAILY, TAB 03/24/17 Calcium Acetate* (Calcium Acetate*) 667 Mg Capsule, 2001 MG PO WITH MEALS, #90 CAP 03/24/17 Aspirin* (Aspirin* Chew) 81 Mg Tab.chew, 81 MG PO DAILY, TAB.CHEW 10/23/16 Follow-up Plan 1.Follow up with primary care physician in 1 week If you don't have one please let someone know, we can give you resources that may help you pick one. You may also call your insurance company to assign one to you. Review your medication list with your nurse before leaving and if you need new prescriptions please let your nurse know. I may have made changes to your home medications or given you new prescriptions, please let your primary doctor know as well. Stay compliant with your medications and report any side effects to your PCP or pharmacist. Return to the ER if you have any concerns and cannot reach your doctors or call your insurance company, they usually have a nurse that can help you. 2. Call 911 or go to the nearest emergency room if experiencing loss of consciousness, dizziness, chest pain, shortness of breath, vomiting/abdominal pain, speech difficulties, motor weakness or any unusual symptoms. 3.Follow-up with outpatient hemodialysis clinic and paper machine backtender [facility]ialysis center[facility] [phone] Primary Care Provider [facility] Pending Labs Laboratory Tests Test 07/07/17 05:03 White Blood Count 5.810^3/ul (4.8-10.8) Red Blood Count 3.4810^6/ul (4.20-5.40) Hemoglobin 10.8g/dl (12.0-16.0) Hematocrit 32.5% (37.0-47.0) Mean Corpuscular Volume 93.4fl (82.0-101.0) Mean Corpuscular Hemoglobin 31.0pg (29.0-33.0) Mean Corpuscular Hemoglobin Concent 33.2g/dl (32.0-37.0) Red Cell Distribution Width 12.3% (11.5-14.5) Platelet Count 9810^3/UL (140-415) Mean Platelet Volume 13.5fl (7.4-10.4) Neutrophils % 62.0% (39.0-77.0) Lymphocytes % 26.9% (15.0-51.0) Monocytes % 8.1% (0.0-11.0) Eosinophils % 2.1% (0.0-7.0) Basophils % 0.7% (0.0-2.0) Nucleated Red Blood Cells % 0.0/100WBC (0.0-0.0) Neutrophils # 3.610^3/ul (1.6-7.5) Lymphocytes # 1.610^3/ul (0.8-2.9) Monocytes # 0.510^3/ul (0.3-0.9) Eosinophils # 0.110^3/ul (0.0-0.5) Basophils # 0.010^3/ul (0.0-0.1) Nucleated Red Blood Cells # 0.010^3/ul (0.0-0.0) Sodium Level 141mmol/L (135-144) Potassium Level 4.4mmol/L (3.5-5.1) Chloride Level 102mmol/L (97-110) Carbon Dioxide Level 27mmol/L (21-31) Anion Gap 16 (8-16) Blood Urea Nitrogen 39mg/dl (7-20) Creatinine 5.59mg/dl (0.44-1.00) Glucose Level 86mg/dl (70-220) Calcium Level 9.0mg/dl (8.4-10.2) KHANH WHEELER V. [employer]LECTRONIC INSTRUMENT TRADES WORKER Jul 07, 2017 13:23
[2017-07-07 13:29] VITALS: BP 111/61; RESP 20
--- NOTE | 2017-07-07 13:36 | PN ---
Date/Time of Note Date/Time of Note DATE: 07/07/17 TIME: 13:31 Assessment/Plan Lines/Catheters IV C[facility]ter Type [facility]from [facility] HD cath Assessment/Plan Chief Complaint/Hosp Course -End-stage renal disease and malfunctioning right upper extremity fistula: Initiated use of her RUE BCF as it has matured however its the antecubital vein in the forearm when the original fistula was created. She tolerated the HD well yesterday. Will plan for her to continue the use of the fistula. If tolerating HD via RUE fistula, will schedule patient for perm catheter removal. -S/P Perm catheter exchange -Followup catheter tip culture -Continue IV antibiotics. -Followup in 1-2 weeks -Discussed vascular optimization (BP meds, diet, nutrition, exercise). -Discussed the findings, plan and management with the patient. She understands with a certified flag signaler. -Thank you for allowing us to partake in the care of your patient. Please call with any questions. Problems: Subjective 24 Hr Interval Summary no new vascular events overnight Exam/Review of Systems Vital Signs Vitals Vital Signs Date Time Temp Pulse Resp B/P Pulse Ox O2 Delivery O2 Flow Rate FiO2 07/07/17 07:37 98.1 74 20 119/60 98 07/06/17 09:46 Room Air Intake and Output 07/06/17 07/06/17 07/07/17 15:00 23:00 07:00 Intake Total 500 ml 240 ml Output Total 1800 ml Balance -1300 ml 240 ml Exam Free Text/Dictation GENERAL: Alert and oriented x3. PULMONARY: Clear to auscultation bilaterally. catheter intact w dry dressing CARDIOVASCULAR: S1, S2 present. No murmurs. ABDOMEN: Soft, nontender, nondistended. Bowel sounds positive. EXTREMITIES: Lower extremities: Palpable femoral pulse, palpable pedal pulse. Motor and sensory intact. Capillary refill 2 to 3 seconds. Right upper extremity: Palpable brachial pulse. Motor and sensory intact. Capillary refill 2 to 3 seconds. Fistula with aneurysmal changes with bruit and thrill present Results Result Diagram: 07/07/17 0503 07/07/17 0503 VALENTE VILLALBA MD Jul 07, 2017 13:36
--- NOTE | 2017-07-07 14:54 | CONS ---
DATE OF ADMISSION: 07/02/2017 DATE OF CONSULTATION: 07/07/2017 TYPE OF CONSULTATION: Infectious Disease. REASON FOR CONSULTATION: Antibiotic management. HISTORY OF PRESENT ILLNESS: Tere Martins is a 37-year-old female with numerous problems who was sent from the [facility] for concern over hemodialysis line infection and is being seen now for antibiot ic management. PAST PROBLEMS INCLUDE: End-stage renal disease on hemodialysis. She presented to the [facility] with 2 da ys of chills and pain around the hemodialysis line. No fevers or drainage. On admission, her white count was 5.8, H and H 10.7 and 33, platelet count 102,000. On the , her white count was 5.8 again. BUN and creatinine 39/5.59, but she is on dialysis. Blood cultures fro m the were negative. The patient was started on daptomycin. She was on vancomycin from the [facility] ond and then she was switched over to daptomycin. HOSPITAL COURSE: The patient was seen by nephrology and also by Dr. Barrios, vascular surgery. Glory logan had seen the patient for evaluation of right upper extremity fistula in regard to having it revise d. She has a right chest wall catheter. She presented with chills and pain in the right chest wall catheter site. On the Dr. Barrios noted end-stage renal disease, malfunctioning right upper extremity fistula. She had a previous venogram. She had an antecubital vein forearm fistula, but fistula is not functioning on the Dr. Barrios took out the catheter and exchange of the rig ht internal jugular vein hemodialysis catheter over a guidewire. Permanent catheter was exchanged a nd placed in the distal superior vena cava. Previous catheter tip was sent for culture. The blood cultures are negative, they probably did not do the culture of the catheter tip. She is currently o n daptomycin, infected right chest Perm-A-Cath, status post exchange. Negative blood cultures. PAST MEDICAL HISTORY: Operations as outlined. She had hemodialysis through a right AV fistula on . FAMILY HISTORY: Noncontributory. SOCIAL HISTORY: She does not smoke, drink or abuse drugs. ALLERGIES: NONE TO PENICILLIN, SULFA OR FOODS. MEDICATIONS: Per chart. REVIEW OF SYSTEMS: As per HPI. PHYSICAL EXAMINATION: GENERAL: She is a well-developed, well-nourished female who is awake, responsive, in no acute distr ess. VITAL SIGNS: Stable. She is afebrile. SKIN: Without generalized rash. HEENT: Within normal limits. NECK: Supple. LYMPH NODES: None palpable. CHEST: Decreased breath sounds at the bases. HEART: Without murmur or gallop. ABDOMEN: Soft, nontender, without organosplenomegaly or masses. EXTREMITIES: Without cyanosis, clubbing, or edema. RECTAL AND GENITAL: Deferred. NEUROLOGIC: No focal neurological abnormalities. With regard to her access sites there is a right chest hemodialysis catheter and a right AV fistula which is maturing. Her white count today is 5.8. IMPRESSION AND PLAN: My suggestions would be that if the AV fistula can be used then the temporary central line should be removed. If not, I would continue to treat her either way with another 2 wee ks of daptomycin. I would then remove the right chest Perm-A-Cath. I will dictate my findings to lisa rodriguez hospitalist and to Dr. Barrios. Dictated By: LEVAR BOWIE MD, JD/YARITZA Conf#: [id number] DID#: [id number]
--- NOTE | 2017-07-07 14:54 | CONS ---
DATE OF ADMISSION: 07/02/2017 DATE OF CONSULTATION: 07/07/2017 TYPE OF CONSULTATION: Infectious Disease. REASON FOR CONSULTATION: Antibiotic management. HISTORY OF PRESENT ILLNESS: Tere Martins is a 37-year-old female with numerous problems who was sent from the [facility] for concern over hemodialysis line infection and is being seen now for antibiot ic management. PAST PROBLEMS INCLUDE: End-stage renal disease on hemodialysis. She presented to the [facility] with 2 da ys of chills and pain around the hemodialysis line. No fevers or drainage. On admission, her white count was 5.8, H and H 10.7 and 33, platelet count 102,000. On the , her white count was 5.8 again. BUN and creatinine 39/5.59, but she is on dialysis. Blood cultures fro m the were negative. The patient was started on daptomycin. She was on vancomycin from the [facility] ond and then she was switched over to daptomycin. HOSPITAL COURSE: The patient was seen by nephrology and also by Dr. Barrios, vascular surgery. Glory logan had seen the patient for evaluation of right upper extremity fistula in regard to having it revise d. She has a right chest wall catheter. She presented with chills and pain in the right chest wall catheter site. On the Dr. Barrios noted end-stage renal disease, malfunctioning right upper extremity fistula. She had a previous venogram. She had an antecubital vein forearm fistula, but fistula is not functioning on the Dr. Barrios took out the catheter and exchange of the rig ht internal jugular vein hemodialysis catheter over a guidewire. Permanent catheter was exchanged a nd placed in the distal superior vena cava. Previous catheter tip was sent for culture. The blood cultures are negative, they probably did not do the culture of the catheter tip. She is currently o n daptomycin, infected right chest Perm-A-Cath, status post exchange. Negative blood cultures. PAST MEDICAL HISTORY: Operations as outlined. She had hemodialysis through a right AV fistula on . FAMILY HISTORY: Noncontributory. SOCIAL HISTORY: She does not smoke, drink or abuse drugs. ALLERGIES: NONE TO PENICILLIN, SULFA OR FOODS. MEDICATIONS: Per chart. REVIEW OF SYSTEMS: As per HPI. PHYSICAL EXAMINATION: GENERAL: She is a well-developed, well-nourished female who is awake, responsive, in no acute distr ess. VITAL SIGNS: Stable. She is afebrile. SKIN: Without generalized rash. HEENT: Within normal limits. NECK: Supple. LYMPH NODES: None palpable. CHEST: Decreased breath sounds at the bases. HEART: Without murmur or gallop. ABDOMEN: Soft, nontender, without organosplenomegaly or masses. EXTREMITIES: Without cyanosis, clubbing, or edema. RECTAL AND GENITAL: Deferred. NEUROLOGIC: No focal neurological abnormalities. With regard to her access sites there is a right chest hemodialysis catheter and a right AV fistula which is maturing. Her white count today is 5.8. IMPRESSION AND PLAN: My suggestions would be that if the AV fistula can be used then the temporary central line should be removed. If not, I would continue to treat her either way with another 2 wee ks of daptomycin. I would then remove the right chest Perm-A-Cath. I will dictate my findings to lisa rodriguez hospitalist and to Dr. Barrios. Dictated By: LEVAR BOWIE MD, JD/YARITZA Conf#: [id number] DID#: [id number]
--- NOTE | 2017-07-07 14:54 | CONS ---
DATE OF ADMISSION: 07/02/2017 DATE OF CONSULTATION: 07/07/2017 TYPE OF CONSULTATION: Infectious Disease. REASON FOR CONSULTATION: Antibiotic management. HISTORY OF PRESENT ILLNESS: Tere Martins is a 37-year-old female with numerous problems who was sent from the [facility] for concern over hemodialysis line infection and is being seen now for antibiot ic management. PAST PROBLEMS INCLUDE: End-stage renal disease on hemodialysis. She presented to the [facility] with 2 da ys of chills and pain around the hemodialysis line. No fevers or drainage. On admission, her white count was 5.8, H and H 10.7 and 33, platelet count 102,000. On the , her white count was 5.8 again. BUN and creatinine 39/5.59, but she is on dialysis. Blood cultures fro m the were negative. The patient was started on daptomycin. She was on vancomycin from the [facility] ond and then she was switched over to daptomycin. HOSPITAL COURSE: The patient was seen by nephrology and also by Dr. Barrios, vascular surgery. Glory logan had seen the patient for evaluation of right upper extremity fistula in regard to having it revise d. She has a right chest wall catheter. She presented with chills and pain in the right chest wall catheter site. On the Dr. Barrios noted end-stage renal disease, malfunctioning right upper extremity fistula. She had a previous venogram. She had an antecubital vein forearm fistula, but fistula is not functioning on the Dr. Barrios took out the catheter and exchange of the rig ht internal jugular vein hemodialysis catheter over a guidewire. Permanent catheter was exchanged a nd placed in the distal superior vena cava. Previous catheter tip was sent for culture. The blood cultures are negative, they probably did not do the culture of the catheter tip. She is currently o n daptomycin, infected right chest Perm-A-Cath, status post exchange. Negative blood cultures. PAST MEDICAL HISTORY: Operations as outlined. She had hemodialysis through a right AV fistula on . FAMILY HISTORY: Noncontributory. SOCIAL HISTORY: She does not smoke, drink or abuse drugs. ALLERGIES: NONE TO PENICILLIN, SULFA OR FOODS. MEDICATIONS: Per chart. REVIEW OF SYSTEMS: As per HPI. PHYSICAL EXAMINATION: GENERAL: She is a well-developed, well-nourished female who is awake, responsive, in no acute distr ess. VITAL SIGNS: Stable. She is afebrile. SKIN: Without generalized rash. HEENT: Within normal limits. NECK: Supple. LYMPH NODES: None palpable. CHEST: Decreased breath sounds at the bases. HEART: Without murmur or gallop. ABDOMEN: Soft, nontender, without organosplenomegaly or masses. EXTREMITIES: Without cyanosis, clubbing, or edema. RECTAL AND GENITAL: Deferred. NEUROLOGIC: No focal neurological abnormalities. With regard to her access sites there is a right chest hemodialysis catheter and a right AV fistula which is maturing. Her white count today is 5.8. IMPRESSION AND PLAN: My suggestions would be that if the AV fistula can be used then the temporary central line should be removed. If not, I would continue to treat her either way with another 2 wee ks of daptomycin. I would then remove the right chest Perm-A-Cath. I will dictate my findings to lisa rodriguez hospitalist and to Dr. Barrios. Dictated By: LEVAR BOWIE MD, JD/YARITZA Conf#: [id number] DID#: [id number]
[2017-07-07 19:25] VITALS: BP 133/68; RESP 18
--- NOTE | 2017-07-07 19:44 | CONS ---
Date/Time of Note Date/Time of Note DATE: 07/07/17 TIME: 19:35 Consultation Date/Type/Reason Admit Date/Time Jul 02, 2017 at 12:33 Initial Consult Date Reason for Consultation ESRD patient 24 HR Interval Summary Free Text/Dictation ESRD patient S/P replacement of L Permacath AVF was used during HD ID wishes to continue antibiotics as long as Permacath in place. Arrangements to be made for oral Zyvox by materials planner/production planner in the morning. Once patient has outpatient HD using AV Fistula a couple times then arrangements will be made to remove the Permacath to avoid infection. Exam/Review of Systems Vital Signs Vitals Vital Signs Date Time Temp Pulse Resp B/P Pulse Ox O2 Delivery O2 Flow Rate FiO2 07/07/17 19:25 98.6 88 18 133/68 98 07/06/17 09:46 Room Air Intake and Output 07/06/17 07/06/17 07/07/17 15:00 23:00 07:00 Intake Total 500 ml 240 ml Output Total 1800 ml Balance -1300 ml 240 ml Exam Constitutional: No alert, No distress, No frail, No non-verbal, No obese, No oriented, No other, No well developed Psych: No anxiety, No confusion, No depression, No nl mood/affect, No no complaints, No other, No suicidal Head: No atraumatic, No hematomas, No lacerations, No normocephalic, No other Eyes: PERRL, No EOMI, No fundi, disc, No icteric, No nl conjunctiva, No nl lids, No nl sclera, No other ENMT: No intubated, No mucosa pink and moist, No nl external ears & nose, No nl lips & teeth, No nl nasal mucosa & septum, No other, No tympanic membranes Neck: No bruits, No jvd, No masses, No non-tender, No nuchal rigidity, No other , No supple, No thyromegaly Cardiovascular: No S3, No S4, No bruits, No diastolic murmur, No edema, No gallop, No irregular rhythm, No jugular venous distention (JVD), No murmurs/ extra sounds, No nl pulses, No other, No regular rate and rhythm, No rub, No systolic murmur Gastrointestinal: No ascites, No bowel sounds, No distended, No firm, No hepatomegaly, No mass, No nl liver, spleen, No non-tender, No other, No rebound or guarding, No soft, No splenomegaly, No surgical scars, No tender Genitourinary - Female: No CMT, No CVA tenderness, No nl adnexae, No nl external genitalia, No other, No uterus Musculoskeletal: No joint tenderness, No muscle tone, No muscle weakness, No nl extremities to inspection, No nl gait and stance, No other, No range of motion, No spine non-tender, No swelling Extremities: No calf tenderness, No clubbing, No cyanosis, No edema, No normal pulses, No other, No palpable cord, No pitting pedal edema, No tenderness Neurological: No PODIATRIC MEDICINE DOCTOR II-XII intact, No DTR's symmetric, No confused, No focal weakness, No lethargic, No nl mental status, No nl speech, No nl strength, No numbness, No other, No reflexes, No unresponsive Skin: No diaphoresis, No ecchymosis, No laceration, No nl turgor, No other, No puncture, No rash or lesions Results Result Diagram: 07/07/17 0503 07/07/17 0503 Results 24 hrs Laboratory Tests Test 07/07/17 05:03 White Blood Count 5.8 Red Blood Count 3.48 L Hemoglobin 10.8 L Hematocrit 32.5 L Mean Corpuscular Volume 93.4 Mean Corpuscular Hemoglobin 31.0 Mean Corpuscular Hemoglobin Concent 33.2 Red Cell Distribution Width 12.3 Platelet Count 98 L Mean Platelet Volume 13.5 H Neutrophils % 62.0 Lymphocytes % 26.9 Monocytes % 8.1 Eosinophils % 2.1 Basophils % 0.7 Nucleated Red Blood Cells % 0.0 Neutrophils # 3.6 Lymphocytes # 1.6 Monocytes # 0.5 Eosinophils # 0.1 Basophils # 0.0 Nucleated Red Blood Cells # 0.0 Sodium Level 141 Potassium Level 4.4 Chloride Level 102 Carbon Dioxide Level 27 Anion Gap 16 Blood Urea Nitrogen 39 H Creatinine 5.59 H Glucose Level 86 Calcium Level 9.0 Medications Medications Current Medications Ondansetron HCl (Zofran Tab) 4 mg Q6H PRN PO NAUSEA AND/OR VOMITING; Start 07/02/17 at 13:00 Ondansetron HCl (Zofran Inj) 4 mg Q6H PRN IV NAUSEA AND/OR VOMITING; Start 07/02/17 at 13:00 Metoclopramide HCl (Reglan) 10 mg Q6H PRN IV NAUSEA AND/OR VOMITING; Start 07/02/17 at 13:00 Acetaminophen (Tylenol Tab) 650 mg Q6H PRN PO PAIN LEVEL 1-3 OR FEVER Last administered on 07/07/17 09:00; Admin Dose 650 MG; Start 07/02/17 at 13:00 Acetaminophen/ Hydrocodone Bitart ([place] (5/325)) 1 tab Q6H PRN PO MODERATE PAIN LEVEL 4-6 Last administered on 07/03/17 15:23; Admin Dose 1 TAB; Start at 13:00 Docusate Sodium (Colace) 100 mg Q12H PRN PO CONSTIPATION Last administered on 07/07/17 13:12; Admin Dose 100 MG; Start 07/02/17 at 13:00 Magnesium Hydroxide (Milk Of Mag) 30 ml DAILY PRN PO CONSTIPATION Last administered on 07/07/17 13:12; Admin Dose 30 ML; Start 07/02/17 at 13:00 Aspirin (Aspirin) 81 mg DAILY PO Last administered on 07/07/17 08:53; Admin Dose 81 MG; Start 07/03/17 at 09:00 Multivitamins Therapeutic 1 tab 1 tab DAILY PO Last administered on 07/07/17 08:54; Admin Dose 1 TAB; Start 07/03/17 at 09:00 Daptomycin/Sodium Chloride (Cubicin/NS) 100 ml @ 200 mls/hr Q48H IVPB Last administered on 07/06/17 21:10; Admin Dose 200 MLS/HR; Start 07/04/17 at 21:00 Epoetin Jai (Epogen (Non Esrd/Non Oncology)) 6,000 units MoWeFr@17 SC ; Start 07/06/17 at 17:00 24 HR. SUMMARY 24 HR. SUMMARY Patient is stable for DC after HD tomorrow. Arrangements made. ERICKA SMITH MD Jul 07, 2017 19:44
[2017-07-08] VITALS (11 sets, daily range): BP systolic 101–129; BP diastolic 55–69; PULSE 63–80; RESP 18
[2017-07-08] MEDS: ACETAMINOPHEN 325 MG TAB PO PRN (07:05)
[2017-07-08] MEDS: MULTIVITAMINS THERAPEUTIC TAB PO SCH (08:33)
[2017-07-08] MEDS: CALCIUM ACETATE 667 MG CAP PO SCH ×2 (08:33→11:54)
[2017-07-08] MEDS: ASPIRIN 81 MG TAB PO SCH (08:33)
[2017-07-08] MEDS ORDERED: LINE600T PO (08:48)
[2017-07-08] MEDS: EPOETIN 3000 UNITS/ML (NON ESRD/NON ONCOLOGY) SC SCH (14:52)
--- NOTE | 2017-07-08 15:58 | CONS ---
Date/Time of Note Date/Time of Note DATE: 07/08/17 TIME: 15:53 Consultation Date/Type/Reason Admit Date/Time Jul 02, 2017 at 12:33 Reason for Consultation Patient seen in followup ESRD with H/O Permacath infection. now S/P replacement Permacath. HD today without problems. Continues to receive IV Daptomycin, hoiwever upon DC today she will be given a Rx for oral ZYVOX, 24 HR Interval Summary Constitutional: No chills, No diaphoresis, No disoriented, No febrile, No improved, No no complaints, No other, No poor po, No requiring IVF, No requiring O2 Detailed Summary Eyes: No discharge, No no complaints, No other, No pain, No redness, No visual change ENT: No bleeding, No congestion, No discharge, No dysphagia, No no complaints, No other, No pain, No sore throat Respiratory: No cough, No no complaints, No other, No pain, No pleuritic pain, No shortness of breath, No sputum, No wheezing Cardiovascular: No chest pain, No edema, No lightheadedness, No no complaints, No orthopenea, No other, No palpitations, No paroxysmal nocturnal dyspnea Gastrointestinal: No blood, No constipation, No decreased appetite, No diarrhea , No flatus, No nausea, No no complaints, No other, No pain, No passing stool, No vomiting Genitourinary: No bleeding, No discharge, No dysuria, No flank pain, No hematuria, No no complaints, No other Musculoskeletal: No back pain, No bone/joint pain, No neck pain, No no complaints, No other, No restricted range of motion, No swelling Skin: No bruising, No erythema, No laceration, No no complaints, No other, No pruritis, No rash, No skin lesions Neurologic: No confusion, No dizziness, No focal-weakness, No headache, No no complaints, No other, No seizure, No syncope Endocrine: No dry skin, No no complaints, No other, No polydypsia, No polyuria , No temp intolerance Lymphatic: No adenopathy, No lymphadema, No no complaints, No other, No tender nodes Psychological: No anxiety, No confusion, No depression, No nl mood/affect, No no complaints, No other, No suicidal Exam/Review of Systems Vital Signs Vitals Vital Signs Date Time Temp Pulse Resp B/P Pulse Ox O2 Delivery O2 Flow Rate FiO2 07/08/17 14:31 98.4 79 18 122/57 99 07/08/17 12:01 Room Air Intake and Output 07/07/17 07/07/17 07/08/17 14:59 22:59 06:59 Intake Total 1980 ml 820 ml Output Total 1550 ml 700 ml Balance 430 ml 120 ml Exam Constitutional: No alert, No distress, No frail, No non-verbal, No obese, No oriented, No other, No well developed Psych: No anxiety, No confusion, No depression, No nl mood/affect, No no complaints, No other, No suicidal Head: No atraumatic, No hematomas, No lacerations, No normocephalic, No other Eyes: No EOMI, No PERRL, No fundi, disc, No icteric, No nl conjunctiva, No nl lids, No nl sclera, No other ENMT: No intubated, No mucosa pink and moist, No nl external ears & nose, No nl lips & teeth, No nl nasal mucosa & septum, No other, No tympanic membranes Neck: No bruits, No jvd, No masses, No non-tender, No nuchal rigidity, No other , No supple, No thyromegaly Respiratory: No clear to auscultation, No congested cough, No crackles/rales, No diminished breath sounds, No intercostal retraction, No labored breathing, No normal air movement, No other, No respirations, No tactile fremitus, No wheezing Cardiovascular: No S3, No S4, No bruits, No diastolic murmur, No edema, No gallop, No irregular rhythm, No jugular venous distention (JVD), No murmurs/ extra sounds, No nl pulses, No other, No regular rate and rhythm, No rub, No systolic murmur Gastrointestinal: No ascites, No bowel sounds, No distended, No firm, No hepatomegaly, No mass, No nl liver, spleen, No non-tender, No other, No rebound or guarding, No soft, No splenomegaly, No surgical scars, No tender Musculoskeletal: No joint tenderness, No muscle tone, No muscle weakness, No nl extremities to inspection, No nl gait and stance, No other, No range of motion, No spine non-tender, No swelling Neurological: No LACQUER MACHINE FEEDER II-XII intact, No DTR's symmetric, No confused, No focal weakness, No lethargic, No nl mental status, No nl speech, No nl strength, No numbness, No other, No reflexes, No unresponsive Skin: No diaphoresis, No ecchymosis, No laceration, No nl turgor, No other, No puncture, No rash or lesions Results Result Diagram: 07/07/17 0503 07/07/17 0503 Medications Medications Current Medications Ondansetron HCl (Zofran Tab) 4 mg Q6H PRN PO NAUSEA AND/OR VOMITING; Start 07/02/17 at 13:00 Ondansetron HCl (Zofran Inj) 4 mg Q6H PRN IV NAUSEA AND/OR VOMITING; Start 07/02/17 at 13:00 Metoclopramide HCl (Reglan) 10 mg Q6H PRN IV NAUSEA AND/OR VOMITING; Start 07/02/17 at 13:00 Acetaminophen (Tylenol Tab) 650 mg Q6H PRN PO PAIN LEVEL 1-3 OR FEVER Last administered on 07/08/17 07:05; Admin Dose 650 MG; Start 07/02/17 at 13:00 Acetaminophen/ Hydrocodone Bitart ([place] (5/325)) 1 tab Q6H PRN PO MODERATE PAIN LEVEL 4-6 Last administered on 07/03/17 15:23; Admin Dose 1 TAB; Start at 13:00 Docusate Sodium (Colace) 100 mg Q12H PRN PO CONSTIPATION Last administered on 07/07/17 13:12; Admin Dose 100 MG; Start 07/02/17 at 13:00 Magnesium Hydroxide (Milk Of Mag) 30 ml DAILY PRN PO CONSTIPATION Last administered on 07/07/17 13:12; Admin Dose 30 ML; Start 07/02/17 at 13:00 Aspirin (Aspirin) 81 mg DAILY PO Last administered on 07/08/17 08:33; Admin Dose 81 MG; Start 07/03/17 at 09:00 Multivitamins Therapeutic 1 tab 1 tab DAILY PO Last administered on 07/08/17 08:33; Admin Dose 1 TAB; Start 07/03/17 at 09:00 Daptomycin/Sodium Chloride (Cubicin/NS) 100 ml @ 200 mls/hr Q48H IVPB Last administered on 07/06/17 21:10; Admin Dose 200 MLS/HR; Start 07/04/17 at 21:00 Epoetin Jai (Epogen (Non Esrd/Non Oncology)) 6,000 units MoWeFr@17 SC Last administered on 07/08/17 14:52; Admin Dose 6,000 UNITS; Start 07/06/17 at 17:00 ERICKA SMITH MD Jul 08, 2017 15:58
--- NOTE | 2017-07-09 07:14 | PN ---
DATE: 07/08/2017 SUBJECTIVE: No acute changes. The patient just finished hemodialysis. She is alert, feels good. Denies pain, discomfort. INDWELLINGS: Right upper extremity AV fistula, right chest Perm-A-Cath. ALLERGIES: VANCOMYCIN, ANTIMICROBIALS, DAPTOMYCIN. PHYSICAL EXAMINATION: GENERAL: Well-developed, middle-aged woman who is alert, in no distress. HEENT: Head atraumatic, normocephalic. Sclerae anicteric. Buccal mucosa pink. NECK: Supple. CHEST: Rise symmetrical. Breath sounds clear. HEART: S1, S2. ABDOMEN: Soft. Bowel sounds present. EXTREMITIES: Without cyanosis. ASSESSMENT: 1. Right chest erythema around hemodialysis catheter. 2. End-stage renal disease. 3. Anemia. PLAN: The patient remains stable. She had a new Perm-A-Cath placed over the old wire in her right chest. She has an AV fistula that is almost mature. We are going to send her home on oral Zyvox fo r 2 weeks and recommend to removal of Perm-A-Cath. Dictated By: ENRIQUETA WERNER ROTARY ENGINE ASSEMBLER for [employer] STAR[employer]/YARITZA Conf#: [id number] DID#: [id number]
--- NOTE | 2017-07-09 07:14 | PN ---
DATE: 07/08/2017 SUBJECTIVE: No acute changes. The patient just finished hemodialysis. She is alert, feels good. Denies pain, discomfort. INDWELLINGS: Right upper extremity AV fistula, right chest Perm-A-Cath. ALLERGIES: VANCOMYCIN, ANTIMICROBIALS, DAPTOMYCIN. PHYSICAL EXAMINATION: GENERAL: Well-developed, middle-aged woman who is alert, in no distress. HEENT: Head atraumatic, normocephalic. Sclerae anicteric. Buccal mucosa pink. NECK: Supple. CHEST: Rise symmetrical. Breath sounds clear. HEART: S1, S2. ABDOMEN: Soft. Bowel sounds present. EXTREMITIES: Without cyanosis. ASSESSMENT: 1. Right chest erythema around hemodialysis catheter. 2. End-stage renal disease. 3. Anemia. PLAN: The patient remains stable. She had a new Perm-A-Cath placed over the old wire in her right chest. She has an AV fistula that is almost mature. We are going to send her home on oral Zyvox fo r 2 weeks and recommend to removal of Perm-A-Cath. Dictated By: ENRIQUETA WERNER DIALYSIS NURSE for [employer] [facility]/YAR[facility]ZA Conf#: [id number] DID#: [id number]
--- NOTE | 2017-07-09 07:14 | PN ---
DATE: 07/08/2017 SUBJECTIVE: No acute changes. The patient just finished hemodialysis. She is alert, feels good. Denies pain, discomfort. INDWELLINGS: Right upper extremity AV fistula, right chest Perm-A-Cath. ALLERGIES: VANCOMYCIN, ANTIMICROBIALS, DAPTOMYCIN. PHYSICAL EXAMINATION: GENERAL: Well-developed, middle-aged woman who is alert, in no distress. HEENT: Head atraumatic, normocephalic. Sclerae anicteric. Buccal mucosa pink. NECK: Supple. CHEST: Rise symmetrical. Breath sounds clear. HEART: S1, S2. ABDOMEN: Soft. Bowel sounds present. EXTREMITIES: Without cyanosis. ASSESSMENT: 1. Right chest erythema around hemodialysis catheter. 2. End-stage renal disease. 3. Anemia. PLAN: The patient remains stable. She had a new Perm-A-Cath placed over the old wire in her right chest. She has an AV fistula that is almost mature. We are going to send her home on oral Zyvox fo r 2 weeks and recommend to removal of Perm-A-Cath. Dictated By: ENRIQUETA WERNER EMERGENCY CARE ATTENDANT for [employer] [facility]ZA Conf#: [id number] DID#: [id number]
== END 2017-07-08 16:00 | disposition home or self-care (01) | DRG 314 ==
LOC: MS2 12:33
PROVIDERS: ADMIT Internal Medicine; ATTEND Internal Medicine
PROC: 02HV33Z Insertion of Infusion Device into Superior Vena Cava, Percutaneous Approach (ICD-10-PCS; 2017-07-06)
PROC: 02PY33Z Removal of Infusion Device from Great Vessel, Percutaneous Approach (ICD-10-PCS; principal; 2017-07-06 10:30)
DX: T82.7XXA Infection and inflammatory reaction due to other cardiac and vascular devices, implants and grafts, initial encounter (principal); N18.6 End stage renal disease; N25.81 Secondary hyperparathyroidism of renal origin; D63.1 Anemia in chronic kidney disease; E83.39 Other disorders of phosphorus metabolism; E87.5 Hyperkalemia; M89.8X9 Other specified disorders of bone, unspecified site; E83.9 Disorder of mineral metabolism, unspecified
CPT/HCPCS: 71020; 80048; 80053; 82550; 83735; 84100; 85025; 85610; 85730; 87040; 90935; 93005; C1750; C1887; J0885; J1200; J1644; J1650; J2250; J3010; J3370; J7050; P9047

== ENCOUNTER 2017-08-11 08:27 | Day surgery (SDC) | payer OTHER ==
[~2017-08-11] VITALS: Ht 167.6 cm; Wt 60.7 kg
[~2017-08-11 08:27] MED LIST changes: +LINE600T PO
[2017-08-11] MEDS ORDERED: SEVE800T10 PO (08:54)
[2017-08-11 09:20] VITALS: BP 127/68; PULSE 80; RESP 18
[2017-08-11 09:24] VITALS: Ht 167.6 cm; Wt 60.7 kg
--- NOTE | 2017-08-11 09:40 | CONS ---
Date/Time of Note Date/Time of Note DATE: 08/11/17 TIME: 09:36 Assessment/Plan Assessment/Plan Chief Complaint/Hosp Course VASCULAR SURGERY Dear doctors: Ms. Martins is a 37-year-old female with history of end-stage renal disease with RUE fistula done at outside hospital. It seems upon evaluation of her fistulogram the fistula was created with her antecubital vein in which both the basilic and cephalic veins have matured. 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 She currently has a right chest wall catheter. She has tolerated her dialysis sessions well At the moment the patient denies shortness of breath, chest pain, nausea, vomiting, fever or chills. She denies any upper extremity claudication or rest pain-like symptoms. REVIEW OF SYSTEMS: A 14-point review performed, negative except for what is mentioned in the HPI. PAST MEDICAL HISTORY: Entails end-stage renal disease. PAST SURGICAL HISTORY: Right chest wall catheter and right upper extremity fistula creation at outside hospital. FAMILY HISTORY: Positive for hypertension and diabetes. SOCIAL HISTORY: Denies tobacco, alcohol or illicit drug use. PHYSICAL EXAMINATION: GENERAL: Alert and oriented x3. HEENT: Normocephalic, atraumatic. PERRLA, EOMI. Mucosa moist. NECK: Supple. No carotid bruits. PULMONARY: Clear to auscultation bilaterally. No crackles. CARDIOVASCULAR: S1, S2 present. No murmurs. ABDOMEN: Soft, nontender, nondistended. Bowel sounds positive. EXTREMITIES: Lower extremities: Palpable femoral pulse, palpable pedal pulse. Motor and sensory intact. Capillary refill 2 to 3 seconds. Right upper extremity: Palpable brachial pulse. Motor and sensory intact. Capillary refill 2 to 3 seconds. Fistula with aneurysmal changes with bruit and thrill present ASSESSMENT AND PLAN: 1. End-stage renal disease and malfunctioning right upper extremity fistula: It seems that the patient from a previous venogram had an antecubital vein forearm fistula creation that a component of her cephalic vein has matured and become aneurysmal, but she also has a branch that continues with her basilic vein that is also matured. Unfortunately, her cephalic vein in the mid upper arm is short and travels medially to the brachial vein. She has tolerated her dialysis sessions well and we have educated her center as to where cannulations should be performed. 2. Will plan to remove her perm catheter and possible intervention Discussed vascular optimization (BP meds, diet, nutrition, exercise, antiplatelets). Discussed the findings, plan and the management with the patient. She understands with a certified contract associate. Thank you for allowing us to partake in the care of your patient. Please call with any questions. Problems: Consultation Date/Type/Reason Admit Date/Time Social History Smoking Status: Never smoker Exam/Review of Systems Vital Signs Vitals Vital Signs Date Time Temp Pulse Resp B/P Pulse Ox O2 Delivery O2 Flow Rate FiO2 08/11/17 09:20 97.6 80 18 127/68 100 Room Air VALENTE VILLALBA MD Aug 11, 2017 09:40
--- NOTE | 2017-08-11 09:42 | PDOCDIS ---
Discharge Instructions DIAGNOSIS Discharge Diagnosis ESRD CONDITION Patient Condition: Good HOME CARE INSTRUCTIONS: Special Diet: RENAL DIET ACTIVITY: Activity Restrictions: Avoid heavy lifting Do not Drive Do not operate Machinery Do not operate Power Tool Bathing Restrictions: Shower FOLLOW UP/APPOINTMENTS Follow-up Plan FOLLOWUP IN TWO WEEKS POST SURGERY CONTINUE WITH HD IN THE ELBOW AREA FOR CANNULATION MAY REMOVE DRESSING IN TWO DAYS, MAY SHOWER IN TWO DAYS VALENTE VILLALBA MD Aug 11, 2017 09:42
[2017-08-11] MEDS ORDERED: MIDAZOLAM 1 MG/ML 2 ML INJ ONE (09:43)
[2017-08-11] MEDS ORDERED: IODIXANOL LOCM 100 ML BTL ONE (09:43)
[2017-08-11] MEDS ORDERED: HEPARIN 1000 UNITS/NS (A-LINE) 1,000 ML ONE (09:43)
[2017-08-11] MEDS ORDERED: LIDOCAINE 1% (MDV) 20 ML INJ ONE (09:43)
[2017-08-11] MEDS ORDERED: FENTAnyl 50 MCG/ML VIAL ONE (09:44)
[2017-08-11] MEDS ORDERED: HEPARIN 1000 UNITS/ML 10 ML INJ ONE (10:10)
--- NOTE | 2017-08-11 10:22 | SIPON ---
Date/Time of Note Date/Time of Note DATE: 08/11/17 TIME: 09:43 Operative Report Preoperative Diagnosis ESRD Postoperative Diagnosis SAME Operation/Procedure Performed PERM CATHETER REMOVAL, CENTRAL VENOGRAM, CENTRAL VENOPLASTY Surgeon see signature line assistant county attorney NONE Anesthesia: moderate sedation Estimated blood loss: minimal Transfusion Required none Specimen SOME Grafts/Implants none Complications none VALENTE VILLALBA MD Aug 11, 2017 09:53
--- NOTE | 2017-08-11 11:11 | OPR ---
DATE OF OPERATION: 08/11/2017 SURGEON: Mukund Barrios MD. PREOPERATIVE DIAGNOSES: Endstage renal disease and central stenosis. POSTOPERATIVE DIAGNOSES: Endstage renal disease and central stenosis. ANESTHESIA: Local with moderate sedation. ESTIMATED BLOOD LOSS: Minimal. COMPLICATIONS: None. HEPARIN: 2000 units IV. CONTRAST: As recorded. ACCESS: Right internal jugular vein and right arm fistula. CLOSURE: Manual compression and 3-0 nylon. SEDATION: Under physician supervision, moderate sedation was administered intravenously under jose nuous monitoring by the interventional team and attending physician. Pulse oximeter, heart rate and blood pressures were continuously monitored by the interventional surgeon. The physician spent kate e was 30 minutes of [id number] sedation time with the patient. INDICATIONS: This is a 37-year-old female with a history of endstage renal disease who had underwen t a right upper extremity fistula creation at an outside hospital. It seems the fistula was develop ed between the antecubital vein where both her basilic and cephalic veins were matured. 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 Her basilic vein has developed. However, at this time she has tolerated dialysis via her right upper extremity cephalic vein that is near the antecubital segment in which we will plan to c ontinue with that for now. In regards to her Perm catheter, she has had it for quite some time now and the plan is to have it removed as she has tolerated dialysis via her upper extremity fistula and to interrogate her central vein as she has had this catheter for a long time, suggestion of central stenosis is there. All risks, benefits and alternatives were discussed with the patient and the pa tient has agreed to proceed understanding all that is involved. Risks including but not limited to bleeding, thrombosis, embolization, myocardial infarction, , device malfunction, stroke, infect ion, nephrotoxicity and patient has agreed to proceed. PROCEDURE: 1. Ultrasound-guided axis of the right upper extremity fistula image recorded. 2. Introduction of catheter into the SVC. 3. Central venogram. 4. Angioplasty of the right brachiocephalic vein and proximal superior vena cava. FINDINGS: Patent brachial vein, patent axillary vein, patent cephalic arch, patent subclavian vein, moderate stenosis of the right subclavian and internal jugular vein junction, severely stenosed rig ht brachiocephalic vein and stenosis of the proximal SVC with SVC being patent postop, occluded righ t internal jugular vein. DESCRIPTION OF PROCEDURE: The patient was brought into the angio suite and positioned in supine pos ition on the fluoroscopic table. Sedation was administered without any complications. The right up per extremity and the right neck were shaved, prepped and draped in usual standard sterile fashion. Time out and appropriate sites were marked and confirmed. Local anesthesia was then infiltrated in the region of the right chest wall where the puncture site of the Perm catheter was located. We al so infiltrated in the region of the right upper extremity fistula near the antecubital fossa. The f istula was then cannulated with a micro access needle under ultrasound guidance and a guidewire was advanced into the cephalic vein under fluoroscopic guidance. The needle was then removed and a micr ocatheter was then placed. Attention was then turned to the right chest wall catheter in which we u sed a Glidewire via the venous port and passed into the distal SVC. At this point, the dialysis cat heter was freed from its granulation tissue around the cuff and was removed. Using a Berenstein cat heter, we were able to direct the catheter into the SVC and with our Glidewire were able to access t he inferior vena cava. At that point, a Glidewire was exchanged with an Amplatz stiff wire. 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 Decision was made to intervene with performing angioplasty of these 2 segments with a 12 x 40 mm balloon. Theref ore, once we had removed the Perm catheter, we went ahead and used our [place] balloon and performed v enoplasty of the SVC and internal jugular vein junction, the right brachiocephalic vein and the prox imal SVC segments. There was severe stenosis which was identified and we were able to perform the v enoplasty appropriately. Upon the completion of this, we went ahead and performed a completion owen ogram via our fistula access and identified patient having patent right brachiocephalic vein and SVC . The patient still had some mild to moderate stenosis at the subclavian and internal jugular vein junction. At this point, all catheters, wires and sheaths were removed. Using a 3-0 nylon suture t he puncture site of the right chest wall was closed. Manual compression was held. The microcathete r of the right upper extremity fistula was also removed and manual compression was held. The patien t tolerated procedure well and was taken to the postanesthesia care unit in stable condition. All i nstruments, sponges, needles, catheters and wires were correct x2. Dictated By: MUKUND ACEVEDO/YARITZA Conf#: [id number] DID#: [id number]
[2017-08-11 11:36] VITALS: BP 157/72; PULSE 82; RESP 18
== END 2017-08-11 11:48 | disposition home or self-care (01) ==
LOC: SDS 08:27
PROVIDERS: ATTEND Student in an Organized Health Care Education/Training Program
DX: I12.0 Hypertensive chronic kidney disease with stage 5 chronic kidney disease or end stage renal disease (principal); N18.6 End stage renal disease
CPT/HCPCS: 36901; 84703; J1644; J2250; J3010; Q9967; Z7610

== ENCOUNTER 2017-09-22 06:48 | Day surgery (SDC) | END 2017-09-22 12:30 | disposition home or self-care (01) ==